=== PATIENT | female | born 1945 | race Caucasian/White ===

== ENCOUNTER → 2016-10-29 | Outpatient (CLI) | payer MEDICARE, MEDICAID ==
[~2016-10-29] MED LIST: ADVAIR 250/501 EA INH; ALPH-E-MIXED-4400 IU PO; AMOXICILLIN500 M3 PO; ASPI-COR81 M1 PO; ATIVAN0.5 MG PO; AVPAK AZITHROM250 M1 PO; BAYER ASPIRIN325 MG PO; BLOOD PRESSURE; CARDIZEM CD360 MG PO; CELEXA20 MG PO; CIPRO500 MG PO; CIPROFLOXACIN500 MG PO; CLARITIN10 M1 PO; DOXYCYCLINE100 M4 PO; FOSAMAX70 MG; HYDROCHLOROTHIA25 MG PO; IMDUR SA30 MG PO; KEFLEX 500 MG E2 CAP PO; KEFLEX500 MG PO; LEVAQUIN750 M1 PO; LISINOPRIL10 MG PO; LISINOPRIL20 MG PO; LOSARTAN POTAS100 M1 PO; MEDROL DOSEPAK4 MG PO; NORCO 325 MG-51 TAB PO; OSCAL,OYSTER S500 MG PO; PERI-COLACE 301 SGL PO; PRAVACHOL20 MG PO; PREDNISONE10 MG PO; PREDNISONE20 M1 PO; PREDNISONE20 MG PO; SIMVASTATIN20 MG PO; SYNTHROID,LEVO75 MCG PO; TOPICORT0.25% T; ULTRAM50 MG PO; VICODIN 5/500 505 MG PO; VICODIN 500 MG-1 TAB PO; VITAMIN D32000 IU PO; ZESTRIL,PRINIVI20 MG PO; ZESTRIL10 MG PO; Zofran4 MG PO
[2016-10-29 11:03] LABS: BASO # 0.1 10*3/uL (0.0-0.1); BASO % 1.1 % (0.0-1.0); EOS # 0.1 10*3/uL (0.0-0.4); EOS % 1.6 % (1.0-4.0); HEMATOCRIT 40.2 % (37.0-47.0); HEMOGLOBIN 12.8 g/dl (12.0-16.0); LYMPH % 31.3 % (27.0-41.0); MEAN CELL VOLUME 90.5 fl (81.0-99.0); MEAN CORPUSCULAR HGB 28.8 pg (27.0-31.0); MEAN CORPUSCULAR HGB CONC 31.8 g/dl (33.0-37.0); MEAN PLATELET VOLUME 10.4 fl (9.6-12.3); MONO # 0.6 10*3/uL (0.1-1.0); MONO % 8.6 % (3.0-9.0); NEUT # 3.6 10*3/uL (2.3-7.9); NEUT % 57.2 % (47.0-73.0); PLATELET COUNT AUTOMATED 253 10*3/uL (130-400); RED BLOOD COUNT 4.44 10*6/uL (4.10-5.10); RED CELL DISTRI WIDTH 13.8 % (0-14.5); WHITE BLOOD COUNT 6.4 10*3/uL (4.8-10.8)
[2016-10-29 11:39] LABS: ALBUMIN 3.5 gm/dl (3.1-4.5); ALKALINE PHOSPHATASE 72 U/L (45-117); BILIRUBIN, TOTAL 0.9 mg/dl (0.2-1.0); BUN 10 mg/dl (7-24); CARBON DIOXIDE 25 mmol/L (21-32); CHLORIDE 108 mmol/L (98-107); CHOLESTEROL 163 mg/dL (<200); EST GLOM FILT AFRICAN AMERICAN > 60 ml/min; FREE T4 1.35 ng/dl (0.76-1.46); GLUCOSE 77 mg/dL (65-99); HDL CHOLESTEROL 83 mg/dl (40-60); LDL CHOLESTEROL 64 mg/dL (9-159); POTASSIUM 4.4 mmol/L (3.5-5.1); SGOT/AST 24 IU/L (3-35); SGPT/ALT 19 U/L (12-78); SODIUM 143 mmol/L (136-145); TOTAL PROTEIN 7.5 gm/dL (6.4-8.2); TRIGLYCERIDES 82 mg/dl (<150); VLDL CHOLESTEROL 16 mg/dL (6-40)
== END | disposition home or self-care (01) ==
LOC: LAB 10:30
PROVIDERS: Family Medicine
DX: I10 Essential (primary) hypertension (principal); E78.5 Hyperlipidemia, unspecified; E55.9 Vitamin D deficiency, unspecified; E03.9 Hypothyroidism, unspecified

== ENCOUNTER → 2017-01-14 | Outpatient (CLI) | payer MEDICARE, MEDICAID | END | disposition home or self-care (01) | LOC: RAD 10:54 | DX: J20.9 Acute bronchitis, unspecified (principal); R07.89 Other chest pain; R05 Cough; R06.02 Shortness of breath; R09.89 Other specified symptoms and signs involving the circulatory and respiratory systems ==

== ENCOUNTER → 2017-01-24 | Outpatient (CLI) | payer MEDICARE, MEDICAID | END | disposition home or self-care (01) | LOC: RAD 16:20 | DX: J44.9 Chronic obstructive pulmonary disease, unspecified (principal); M17.0 Bilateral primary osteoarthritis of knee; I10 Essential (primary) hypertension; J20.9 Acute bronchitis, unspecified; M25.561 Pain in right knee; M25.562 Pain in left knee; R05 Cough; R09.89 Other specified symptoms and signs involving the circulatory and respiratory systems; R06.2 Wheezing ==

== ENCOUNTER 2017-03-04 12:36 | Emergency (ER) | payer MEDICARE, MEDICAID ==
[~2017-03-04] VITALS: Ht 152.4 cm; Wt 54.4 kg
[2017-03-04] MEDS ORDERED: CITALOPRAM20 MG PO (12:44)
[2017-03-04 12:53] VITALS: BP 146/68
[2017-03-04 13:39] LABS: BASO % 0.7 % (0.0-1.0); EOS % 0.7 % (1.0-4.0); HEMATOCRIT 34.9 % (37.0-47.0); HEMOGLOBIN 11.3 g/dl (12.0-16.0); LYMPH # 1.2 10*3/uL (1.3-4.4); MEAN CELL VOLUME 88.1 fl (81.0-99.0); MEAN CORPUSCULAR HGB 28.5 pg (27.0-31.0); MEAN CORPUSCULAR HGB CONC 32.4 g/dl (33.0-37.0); MEAN PLATELET VOLUME 10.3 fl (9.6-12.3); MONO # 0.6 10*3/uL (0.1-1.0); MONO % 9.9 % (3.0-9.0); NEUT % 67.5 % (47.0-73.0); PLATELET COUNT AUTOMATED 253 10*3/uL (130-400); RED BLOOD COUNT 3.96 10*6/uL (4.10-5.10); WHITE BLOOD COUNT 5.9 10*3/uL (4.8-10.8)
[2017-03-04 13:49] LABS: PROTHROMBIN TIME 10.4 SECONDS (9.0-12.4)
[2017-03-04 13:52] LABS: BILIRUBIN NEGATIVE (NEGATIVE); BLOOD NEGATIVE (NEGATIVE); COLOR YELLOW (YELLOW); GLUCOSE NEGATIVE (NEGATIVE); KETONE TRACE (NEGATIVE); LEUKO ESTERASE 1+ (NEGATIVE); NITRITE NEGATIVE (NEGATIVE); PH 7.5 (5.0-9.0); PROTEIN NEGATIVE (NEGATIVE); SPECIFIC GRAVITY <= 1.005 (1.005-1.030); UROBILINOGEN 0.2 E.U./dl (0.2-1.0)
[2017-03-04 13:54] LABS: ALBUMIN 3.2 gm/dl (3.1-4.5); ALKALINE PHOSPHATASE 89 U/L (45-117); BILIRUBIN, TOTAL 0.7 mg/dl (0.2-1.0); BUN 8 mg/dl (7-24); CARBON DIOXIDE 26 mmol/L (21-32); CHLORIDE 104 mmol/L (98-107); CKMB 0.5 ng/ml (0.5-3.6); CPK 85 U/L (26-192); EST GLOM FILT AFRICAN AMERICAN > 60 ml/min; FREE THYROXIN INDEX/T7 4.4 (1.5-5.4); GLUCOSE 129 mg/dL (65-99); POTASSIUM 4.2 mmol/L (3.5-5.1); SGOT/AST 23 IU/L (3-35); SGPT/ALT 13 U/L (12-78); SODIUM 143 mmol/L (136-145); T3 UPTAKE 36 % (31-39); THYROXINE (T4) TOTAL 12.4 ug/dl (4.8-13.9)
[2017-03-04 13:55] LABS: TROPONIN I < 0.015 ng/ml (<0.045)
[2017-03-04 14:03] LABS: CLARITY SL CLOUDY (CLEAR)
[2017-03-04 14:15] LABS: MUCOUS TRACE; URINE REFLEX COMMENT YES (NO)
== END 2017-03-04 15:17 | disposition short-term general hospital (02) ==
LOC: ED 12:36
PROVIDERS: Emergency Medicine
DX: R41.82 Altered mental status, unspecified (principal); F41.9 Anxiety disorder, unspecified; I25.10 Atherosclerotic heart disease of native coronary artery without angina pectoris; F32.9 Major depressive disorder, single episode, unspecified; E03.9 Hypothyroidism, unspecified; E78.5 Hyperlipidemia, unspecified; M19.90 Unspecified osteoarthritis, unspecified site; Z88.2 Allergy status to sulfonamides; Z79.82 Long term (current) use of aspirin; Z79.899 Other long term (current) drug therapy

== ENCOUNTER → 2017-03-15 | Outpatient (CLI) | payer MEDICARE, MEDICAID ==
[~2017-03-15] MED LIST changes: +CITALOPRAM20 MG PO
--- NOTE | ~2017-03-15 | HM ---
[place], [place] HOLTER MONITOR REPORT NAME: AZ TOMPKINS [facility] #: [id number] UNIT #: [id number] ROOM: DOCTOR: HEVER NICOLAS MD BIRTHDATE: [birth year] DOS: 03/15/2017 This was requested by Dr. Brice Vo. INDICATIONS: Stroke due to non-pyogenic cerebral venous thrombosis. PROCEDURE: A Holter recording was done on the patient's heart rhythm for 48 hours beginning at 9:43 a.m. on 03/15/2017 and removed on 03/17/2017. The recording was analyzed and this is being dictated on 03/17/2017. FINDINGS: The patient was in sinus rhythm during the study. No atrial fibrillation was recorded. Average heart rate was 59 with heart rates varying from 45-90 beats per minute. Very rare premature ventricular contractions were noted. These were all isolated and there was no ventricular tachycardia seen. Occasional premature atrial contractions were recorded including a 16-beat run of supraventricular tachycardia at a rate of 120 beats per minute. This appeared to be an atrial tachycardia. This was recorded at 329 on day 2 of the study. No prolonged pauses were recorded. The patient did return a diary, but made no entries. IMPRESSION: 1. Relative sinus bradycardia. The patient's average heart rate was 59. 2. Rare premature ventricular contractions without ventricular tachycardia. 3. Rare premature atrial contractions with a 16-beat run of atrial tachycardia recorded. Average rate 120 beats per minute during atrial tachycardia. 4. No symptoms listed. HEVER NICOLAS MD CM:HOLTER:HOLTER MONITOR REPORT 46 33 HEVER NICOLAS MD
== END | disposition home or self-care (01) ==
LOC: CARD 09:13
DX: I63.6 Cerebral infarction due to cerebral venous thrombosis, nonpyogenic (principal)

== ENCOUNTER → 2017-05-10 | Outpatient (CLI) | payer MEDICARE, MEDICAID ==
[2017-05-10 19:57] LABS: BF LYMPHOCYTES 17 %; BF MACROPHAGES 3 %; BF MONOCYTES 4 %; BF NEUTROPHILS 76 %
[2017-05-10 20:01] LABS: BODY FLUID WBC 8813 /uL
[2017-05-10 20:04] LABS: BODY FLUID RBC < 1000 /uL; BODY FLUID TYPE SYNOVIAL
== END | disposition home or self-care (01) ==
LOC: LAB 14:45
PROVIDERS: Orthopaedic Surgery
DX: M25.461 Effusion, right knee (principal)

== ENCOUNTER 2017-11-27 14:56 | Inpatient (IN) | payer MEDICARE, MEDICAID ==
[~2017-11-27] VITALS: Ht 152.4 cm; Wt 53.6 kg
--- NOTE | ~2017-11-27 | PR ---
[place], [place] PROGRESS NOTE NAME: AZ TOMPKINS [facility] #: [id number] UNIT #: [id number] ROOM: 521 DOCTOR: TAMMY GRIJALVA MD BIRTHDATE: [birth year] DOS: 11/29/2017 She was admitted to the hospital because of chest pain. The pain has been there for a few days and when she coughs, it seems to hurt more. She has some exertional shortness of breath. She has not had any dizziness, fainting spells or palpitation. OBJECTIVE: GENERAL: She looks well. VITAL SIGNS: Pulse is regular. NECK: JVP is normal. CARDIOVASCULAR: Auscultation reveals normal A2 intensity. However, there is a grade 2/6 systolic murmur over the aortic area. CHEST: Lungs are clear. EXTREMITIES: There is no edema in lower extremities. LABORATORY DATA: An echocardiogram was done yesterday. It demonstrated an LV ejection fraction of 70% and normal wall motion and mild aortic stenosis and trace aortic regurgitation and mild tricuspid regurgitation with mild pulmonary hypertension. She is to undergo a Lexiscan Cardiolite study this morning and I will take a look at the images later on. TAMMY GRIJALVA MD CM:PNTRANS 1133 [id number] TAMMY GRIJALVA MD 11/29/17 1146 interface
--- NOTE | ~2017-11-27 | CON ---
[place], [place] REPORT OF CONSULTATION NAME: AZ TOMPKINS [facility] #: [id number] UNIT #: [id number] ROOM: 521 DOCTOR: DIANDRA KNUTSON MD BIRTHDATE: [birth year] DOS: 11/28/2017 HISTORY OF PRESENT ILLNESS: A 72-year-old female, I am covering for Dr. Morales. We were consulted for shortness of breath. Dr. Vo was treating the patient for shortness of breath, possible pneumonia as an outpatient. The patient was getting Z-Marc. The patient states that she gets some chest discomfort when she exerts herself, but very little. She had a heart catheterization in [place] many years ago. She does not remember she refused any intervention. She does not think she had any stress test for a while. PAST MEDICAL HISTORY: History of TIA in the past, cardiac risk factors, hypertension, hyperlipidemia, osteoporosis, history of syncope. SURGICAL HISTORY: As mentioned, cholecystectomy, hysterectomy, cardiac catheterization probably did not really receive any intervention. SOCIAL HISTORY: Denies any alcohol or drug abuse. Hemodynamically appears to be stable. HOME MEDICATIONS: Aspirin, atorvastatin, isosorbide, lisinopril. REVIEW OF SYSTEMS: CONSTITUTIONAL: No fever, no chills. CARDIOVASCULAR: Had some atypical chest pain, but more pleuritic in nature, increases with coughing. RESPIRATORY: As per HPI with shortness of breath. GASTROINTESTINAL: No nausea, no vomiting. GENITOURINARY: No dysuria. NEUROLOGICAL: Stable. PHYSICAL EXAMINATION: GENERAL: The patient is alert, oriented x 3. She is in sinus rhythm. HEENT: Unremarkable. NECK: Supple, no JVD. LUNGS: Diminished breath sounds. Lungs exam showed no respiratory distress. HEART: Sounds are regular. ABDOMEN: Appears to be stable. RADIOLOGY: A chest x-ray showed no acute pulmonary process. EKG sinus with nonspecific ST-T changes. IMPRESSION: Probable pneumonitis, atypical chest discomfort, dyspnea on exertion, osteoarthritis, hypertension. RECOMMENDATIONS: Try to obtain the catheterization report from [place]. Continue the present medications as ordered. Continue the DuoNeb, Mucinex and antibiotics. We will consider to do an echocardiogram if it is not done in 6 months to assess the ejection fraction and we will follow up with you. Thank you for this interesting consultation. [place], [place] REPORT OF CONSULTATION NAME: AZ TOMPKINS UNIT #: [id number] ROOM: 521 DOCTOR: EAMON PACHECO,DIANDRA BIRTHDATE: [birth year] DIANDRA KNUTSON MD CM:CONSTR:REPORT OF CONSULTATION 0710 12/06/17 0951 interface
[2017-11-27] MEDS ORDERED: AMOXICILLIN500 M2 PO (15:18)
[2017-11-27] MEDS ORDERED: Nizoral 2%15 GM T (15:19)
[2017-11-27] MEDS ORDERED: TESSALON PERLE100 MG PO (15:19)
[2017-11-27] MEDS ORDERED: SENOKOT8.6 MG PO (15:20)
[2017-11-27] MEDS ORDERED: ATORVASTATIN CA40 M1 PO (15:21)
[2017-11-27 16:00] VITALS: BP 139/61
[2017-11-27 16:30] LABS: BASO # 0.1 10*3/uL (0.0-0.1); BASO % 1.5 % (0.0-1.0); EOS # 0.1 10*3/uL (0.0-0.4); EOS % 0.8 % (1.0-4.0); HEMATOCRIT 33.1 % (37.0-47.0); HEMOGLOBIN 10.7 g/dl (12.0-16.0); LYMPH # 2.1 10*3/uL (1.3-4.4); LYMPH % 34.3 % (27.0-41.0); MEAN CELL VOLUME 87.1 fl (81.0-99.0); MEAN CORPUSCULAR HGB 28.2 pg (27.0-31.0); MEAN CORPUSCULAR HGB CONC 32.3 g/dl (33.0-37.0); MEAN PLATELET VOLUME 10.2 fl (9.6-12.3); MONO # 0.6 10*3/uL (0.1-1.0); MONO % 9.2 % (3.0-9.0); NEUT # 3.2 10*3/uL (2.3-7.9); PLATELET COUNT AUTOMATED 302 10*3/uL (130-400); RED CELL DISTRI WIDTH 14.2 % (0-14.5)
[2017-11-27 16:39] LABS: ACT PARTIAL THROMBO TIME 25.5 SECONDS (20.8-31.5)
[2017-11-27 16:46] LABS: ALKALINE PHOSPHATASE 135 U/L (45-117); BUN 17 mg/dl (7-24); CHLORIDE 106 mmol/L (98-107); LIPASE 172 U/L (73-393); POTASSIUM 3.5 mmol/L (3.5-5.1); SGOT/AST 17 IU/L (3-35); SGPT/ALT 21 U/L (12-78); SODIUM 141 mmol/L (136-145); TOTAL PROTEIN 7.6 gm/dL (6.4-8.2)
[2017-11-27 16:47] LABS: TROPONIN I 0.021 ng/ml (<0.045)
[2017-11-27 16:53] LABS: BILIRUBIN NEGATIVE (NEGATIVE); BLOOD 1+ (NEGATIVE); CLARITY CLEAR (CLEAR); COLOR YELLOW (YELLOW); GLUCOSE NEGATIVE (NEGATIVE); KETONE NEGATIVE (NEGATIVE); LEUKO ESTERASE NEGATIVE (NEGATIVE); NITRITE NEGATIVE (NEGATIVE); SPECIFIC GRAVITY 1.015 (1.005-1.030); UROBILINOGEN 0.2 E.U./dl (0.2-1.0)
[2017-11-27 17:03] LABS: BACTERIA 1+; EPITHELIAL CELLS 0-2
[2017-11-27 20:12] VITALS: BP 101/45
[2017-11-28 00:36] VITALS: BP 118/50
[2017-11-28] MEDS ORDERED: GOOD NEIGHBOR L10 MG PO (02:44)
[2017-11-28 06:21] LABS: BASO % 0.3 % (0.0-1.0); HEMATOCRIT 33.1 % (37.0-47.0); HEMOGLOBIN 10.5 g/dl (12.0-16.0); LYMPH # 0.8 10*3/uL (1.3-4.4); MEAN CELL VOLUME 88.3 fl (81.0-99.0); MEAN CORPUSCULAR HGB CONC 31.7 g/dl (33.0-37.0); MEAN PLATELET VOLUME 10.4 fl (9.6-12.3); MONO # 0.1 10*3/uL (0.1-1.0); MONO % 1.7 % (3.0-9.0); NEUT # 2.6 10*3/uL (2.3-7.9); NEUT % 74.2 % (47.0-73.0); PLATELET COUNT AUTOMATED 254 10*3/uL (130-400); RED BLOOD COUNT 3.75 10*6/uL (4.10-5.10); RED CELL DISTRI WIDTH 13.9 % (0-14.5); WHITE BLOOD COUNT 3.6 10*3/uL (4.8-10.8)
[2017-11-28 06:44] LABS: ALBUMIN 2.7 gm/dl (3.1-4.5); ALKALINE PHOSPHATASE 125 U/L (45-117); BUN 13 mg/dl (7-24); CHLORIDE 110 mmol/L (98-107); CHOLESTEROL 136 mg/dL (<200); CREATININE 0.78 mg/dL (0.55-1.02); FREE T4 0.94 ng/dl (0.76-1.46); HDL CHOLESTEROL 74 mg/dl (40-60); LDL CHOLESTEROL 51 mg/dL (9-159); PHOSPHOROUS 3.2 mg/dL (2.5-4.9); POTASSIUM 4.1 mmol/L (3.5-5.1); SGOT/AST 18 IU/L (3-35); SGPT/ALT 18 U/L (12-78); SODIUM 143 mmol/L (136-145); TOTAL PROTEIN 7.2 gm/dL (6.4-8.2); TRIGLYCERIDES 57 mg/dl (<150); VLDL CHOLESTEROL 11 mg/dL (6-40)
[2017-11-28 06:51] LABS: ACT PARTIAL THROMBO TIME 25.9 SECONDS (20.8-31.5)
[2017-11-28 08:00] VITALS: BP 155/54
[2017-11-28 08:13] LABS: VITAMIN D, 25-HYDROXY 41.5 ng/mL (30-100)
[2017-11-28 12:00] VITALS: BP 151/50
[2017-11-28 16:00] VITALS: BP 116/55
[2017-11-28 20:00] VITALS: BP 119/55
[2017-11-29] VITALS: BP 117/53; BP 137/66
[2017-11-29 07:01] LABS: HEMATOCRIT 30.5 % (37.0-47.0); HEMOGLOBIN 9.6 g/dl (12.0-16.0); LYMPH # 0.8 10*3/uL (1.3-4.4); LYMPH % 9.2 % (27.0-41.0); MEAN CELL VOLUME 89.2 fl (81.0-99.0); MEAN CORPUSCULAR HGB 28.1 pg (27.0-31.0); MEAN CORPUSCULAR HGB CONC 31.5 g/dl (33.0-37.0); MEAN PLATELET VOLUME 10.5 fl (9.6-12.3); MONO # 0.5 10*3/uL (0.1-1.0); MONO % 5.3 % (3.0-9.0); NEUT # 7.6 10*3/uL (2.3-7.9); NEUT % 84.9 % (47.0-73.0); PLATELET COUNT AUTOMATED 253 10*3/uL (130-400); RED BLOOD COUNT 3.42 10*6/uL (4.10-5.10); RED CELL DISTRI WIDTH 14.1 % (0-14.5); WHITE BLOOD COUNT 8.9 10*3/uL (4.8-10.8)
[2017-11-29 07:13] LABS: BUN 19 mg/dl (7-24); CHLORIDE 112 mmol/L (98-107); SODIUM 143 mmol/L (136-145)
[2017-11-29 07:56] VITALS: BP 167/54
[2017-11-29 12:00] VITALS: BP 162/60
[2017-11-29 16:00] VITALS: BP 126/54
[2017-11-29 20:00] VITALS: BP 122/64; BP 124/67
[2017-11-30 00:15] VITALS: BP 124/52
[2017-11-30 08:06] VITALS: BP 176/65
[2017-11-30 16:00] VITALS: BP 130/55
[2017-11-30 20:00] VITALS: BP 125/86
[2017-12-01] VITALS: BP 122/54
[2017-12-01 08:00] VITALS: BP 178/80
[2017-12-01] MEDS ORDERED: PREDNISONE10 MG PO (11:41)
[2017-12-01 12:00] VITALS: BP 151/70
== END 2017-12-01 16:05 | disposition home or self-care (01) | DRG 190 ==
LOC: 5E 14:56
PROVIDERS: Hospitalist; Internal Medicine
PROC: 3E073KZ Introduction of Other Diagnostic Substance into Coronary Artery, Percutaneous Approach (ICD-10-PCS; principal; 2017-11-29)
PROC: 4A02XM4 Measurement of Cardiac Total Activity, External Approach (ICD-10-PCS; principal; 2017-11-29)
DX: J44.1 Chronic obstructive pulmonary disease with (acute) exacerbation (principal); J18.9 Pneumonia, unspecified organism; D64.9 Anemia, unspecified; F33.9 Major depressive disorder, recurrent, unspecified; I35.0 Nonrheumatic aortic (valve) stenosis; T14.8XXA Other injury of unspecified body region, initial encounter; D72.810 Lymphocytopenia; J44.0 Chronic obstructive pulmonary disease with (acute) lower respiratory infection; E03.9 Hypothyroidism, unspecified; E55.9 Vitamin D deficiency, unspecified; I25.119 Atherosclerotic heart disease of native coronary artery with unspecified angina pectoris; I10 Essential (primary) hypertension; M54.5 Low back pain; F41.9 Anxiety disorder, unspecified; M81.0 Age-related osteoporosis without current pathological fracture; G89.29 Other chronic pain; E78.5 Hyperlipidemia, unspecified; R73.03 Prediabetes; R74.8 Abnormal levels of other serum enzymes; R32 Unspecified urinary incontinence; X58.XXXA Exposure to other specified factors, initial encounter; M17.11 Unilateral primary osteoarthritis, right knee; R00.1 Bradycardia, unspecified; Z79.82 Long term (current) use of aspirin; Z90.49 Acquired absence of other specified parts of digestive tract; Z90.710 Acquired absence of both cervix and uterus; Z82.49 Family history of ischemic heart disease and other diseases of the circulatory system; Z83.6 Family history of other diseases of the respiratory system; Y93.89 Activity, other specified; Y92.89 Other specified places as the place of occurrence of the external cause; Z88.2 Allergy status to sulfonamides; Z86.73 Personal history of transient ischemic attack (TIA), and cerebral infarction without residual deficits; Z79.899 Other long term (current) drug therapy; Z83.3 Family history of diabetes mellitus

== ENCOUNTER → 2018-04-14 | Outpatient (CLI) | payer MEDICARE, MEDICAID ==
[~2018-04-14] MED LIST changes: +AMOXICILLIN500 M2 PO; +ATORVASTATIN CA40 M1 PO; +GOOD NEIGHBOR L10 MG PO; +Nizoral 2%15 GM T; +SENOKOT8.6 MG PO; +TESSALON PERLE100 MG PO
[2018-04-14 11:14] LABS: BASO # 0.1 10*3/uL (0.0-0.1); BASO % 1.1 % (0.0-1.0); EOS # 0.1 10*3/uL (0.0-0.4); EOS % 1.4 % (1.0-4.0); HEMOGLOBIN 10.5 g/dl (12.0-16.0); LYMPH # 1.9 10*3/uL (1.3-4.4); LYMPH % 26.6 % (27.0-41.0); MEAN CELL VOLUME 90.9 fl (81.0-99.0); MEAN CORPUSCULAR HGB 28.9 pg (27.0-31.0); MEAN CORPUSCULAR HGB CONC 31.8 g/dl (33.0-37.0); MEAN PLATELET VOLUME 10.1 fl (9.6-12.3); MONO # 0.7 10*3/uL (0.1-1.0); NEUT # 4.3 10*3/uL (2.3-7.9); NEUT % 60.6 % (47.0-73.0); PLATELET COUNT AUTOMATED 279 10*3/uL (130-400); RED BLOOD COUNT 3.63 10*6/uL (4.10-5.10); RED CELL DISTRI WIDTH 12.9 % (0-14.5)
[2018-04-14 11:52] LABS: ALBUMIN 2.9 gm/dl (3.1-4.5); ALKALINE PHOSPHATASE 114 U/L (45-117); BUN 9 mg/dl (7-24); CHLORIDE 104 mmol/L (98-107); CHOLESTEROL 112 mg/dL (<200); CREATININE 0.84 mg/dL (0.55-1.02); FREE T4 1.29 ng/dl (0.76-1.46); HDL CHOLESTEROL 60 mg/dl (40-60); LDL CHOLESTEROL 34 mg/dL (9-159); POTASSIUM 4.2 mmol/L (3.5-5.1); SGOT/AST 17 IU/L (3-35); SGPT/ALT 15 U/L (12-78); SODIUM 138 mmol/L (136-145); TOTAL PROTEIN 7.6 gm/dL (6.4-8.2); TRIGLYCERIDES 92 mg/dl (<150); VLDL CHOLESTEROL 18 mg/dL (6-40)
== END | disposition home or self-care (01) ==
LOC: LAB 10:36
PROVIDERS: Family Medicine
DX: J44.9 Chronic obstructive pulmonary disease, unspecified (principal); E78.5 Hyperlipidemia, unspecified; M81.0 Age-related osteoporosis without current pathological fracture; I10 Essential (primary) hypertension; I25.2 Old myocardial infarction

== ENCOUNTER → 2018-04-17 | Outpatient (CLI) | payer MEDICARE, MEDICAID | END | disposition home or self-care (01) | LOC: RAD 11:17 | DX: M81.0 Age-related osteoporosis without current pathological fracture (principal); E78.5 Hyperlipidemia, unspecified; Z78.0 Asymptomatic menopausal state; Z90.710 Acquired absence of both cervix and uterus ==

== ENCOUNTER → 2018-10-23 | Outpatient (CLI) | payer MEDICARE, MEDICAID ==
[~2018-10-23] MED LIST changes: +CETIRIZINE HYDR10 MG PO; +DOXYCYCLINE100 MG PO
== END | disposition home or self-care (01) ==
LOC: RAD 11:23
DX: J44.9 Chronic obstructive pulmonary disease, unspecified (principal)

== ENCOUNTER 2018-11-02 16:37 | Inpatient (IN) | payer MEDICARE, MEDICAID ==
[~2018-11-02] VITALS: Ht 152.4 cm; Wt 57.3 kg
[2018-11-02] VITALS: BP 102/45
--- NOTE | ~2018-11-02 | EKG ---
[place], [place] ELECTROCARDIOGRAM REPORT NAME: AZ TOMPKINS UNIT #: [id number] ROOM: 403 DOCTOR: CARO DRAFT REPORT BIRTHDATE: [address] [facility] Test Date: 2018-11-02 Test Time: 17:00:38 Pat Name: AZ TOMPKINS Department: Room: 403 Gender: F Channel Opener: Jan Phelan : 1945 Requested By: RE BUNDY Order Number: [id number] Reading MD: Darnell Barber MD Measurements Intervals [place] Rate: 62 P: 18 IN: 138 QRS: 6 QRSD: 84 T: 44 QT: 395 QTc: 402 Interpretive Statements Sinus rhythm Nonspecific ST-T changes Electronically Signed On 11-05-2018 21:01:08 PST by Darnell Barber MD CM:EKGRPT:ELECTROCARDIOGRAM REPORT 1700 00 RE BUNDY EPIPHANY DRAFT REPORT RE BUNDY
[~2018-11-02 16:37] MED LIST changes: -CETIRIZINE HYDR10 MG PO; -DOXYCYCLINE100 MG PO
[2018-11-02 16:40] VITALS: BP 121/47
[2018-11-02 17:21] LABS: BASO # 0.1 10*3/uL (0.0-0.1); BASO % 0.9 % (0.0-1.0); EOS % 0.6 % (1.0-4.0); HEMATOCRIT 38.3 % (37.0-47.0); HEMOGLOBIN 12.4 g/dl (12.0-16.0); LYMPH # 1.6 10*3/uL (1.3-4.4); LYMPH % 23.3 % (27.0-41.0); MEAN CELL VOLUME 90.3 fl (81.0-99.0); MEAN CORPUSCULAR HGB 29.2 pg (27.0-31.0); MEAN CORPUSCULAR HGB CONC 32.4 g/dl (33.0-37.0); MEAN PLATELET VOLUME 10.1 fl (9.6-12.3); MONO # 0.9 10*3/uL (0.1-1.0); MONO % 13.9 % (3.0-9.0); NEUT # 4.1 10*3/uL (2.3-7.9); PLATELET COUNT AUTOMATED 260 10*3/uL (130-400); RED BLOOD COUNT 4.24 10*6/uL (4.10-5.10); WHITE BLOOD COUNT 6.6 10*3/uL (4.8-10.8)
[2018-11-02 17:30] VITALS: BP 109/54
[2018-11-02 17:30] LABS: ACT PARTIAL THROMBO TIME 21.4 SECONDS (20.8-31.5); INTERNATIONAL NORM RATIO 0.9 (2.0-3.5)
[2018-11-02 17:39] LABS: ALBUMIN 3.4 gm/dl (3.1-4.5); ALKALINE PHOSPHATASE 109 U/L (45-117); BUN 13 mg/dl (7-24); CHLORIDE 105 mmol/L (98-107); CREATININE 1.11 mg/dL (0.55-1.02); POTASSIUM 3.9 mmol/L (3.5-5.1); SGOT/AST 25 IU/L (3-35); SGPT/ALT 21 U/L (12-78); SODIUM 140 mmol/L (136-145); TOTAL PROTEIN 7.7 gm/dL (6.4-8.2)
[2018-11-02 17:43] LABS: TROPONIN I < 0.015 ng/ml (<0.045)
--- NOTE | 2018-11-02 18:40 | NUR ---
PT RESTING QUIETLY, VOICES NO COMPLAINTS. WAITING FOR ROOM PLACEMENT.
[2018-11-02 18:41] VITALS: BP 107/46
[2018-11-02 19:45] VITALS: BP 101/58
--- NOTE | 2018-11-02 19:45 | NUR ---
A 73, admitted to , under the services of JIM Chavez MD with a diagnosis of ACUTE KDINEY INJURY, SYNCOPE AND COLLAPSE. Chief complaint is MULTIPLE COMPLAINTS. Patient arrived via stretcher from ER. Monitor applied. Initial assessment completed. Vital signs taken and recorded. JIM CHAEVZ MD notified of admission to the unit. Orders received. See assessment for past medical history, medications and allergies. Patient and/or family oriented to unit. [facility] 4TH FLOOR visitation policy reviewed. Clothing/patient valuable form completed. DANNY DUNN
--- NOTE | 2018-11-02 20:25 | NUR ---
DR. SHELBY ON FLOOR. NOTIFIED DR. SHELBY MED REC UP TO DATE. DR SHELBY. AWARE PATIENT HAS WOUND ON LONG. WAITING ON WOUND CARE ORDERS. DR. SHELBY ALSO MADE AWARE PATIENT DOES NOT WANT INTUBATION OR CHEST COMPRESSIONS. WANTING TO BE A DNRCCA. DR. SHELBY TO SIGN PAPER.
--- NOTE | 2018-11-02 21:18 | NUR ---
PATIENT BEING TAKEN DOWN FOR CT AT THIS TIME.
--- NOTE | 2018-11-02 21:31 | NUR ---
RECEIVED CRITICAL LAB VALUE OF 577. PER DR. SHELBY GIVE PATIENT 14UNITS AND RECHECK IN ONE HOUR
[2018-11-03] VITALS: BP 102/45
[2018-11-03 06:57] LABS: BASO % 0.3 % (0.0-1.0); HEMATOCRIT 35.2 % (37.0-47.0); LYMPH # 0.9 10*3/uL (1.3-4.4); LYMPH % 24.3 % (27.0-41.0); MEAN CORPUSCULAR HGB 29.3 pg (27.0-31.0); MEAN CORPUSCULAR HGB CONC 31.3 g/dl (33.0-37.0); MEAN PLATELET VOLUME 10.3 fl (9.6-12.3); MONO # 0.2 10*3/uL (0.1-1.0); MONO % 5.7 % (3.0-9.0); NEUT # 2.6 10*3/uL (2.3-7.9); NEUT % 69.2 % (47.0-73.0); PLATELET COUNT AUTOMATED 195 10*3/uL (130-400); RED BLOOD COUNT 3.76 10*6/uL (4.10-5.10); RED CELL DISTRI WIDTH 15.2 % (0-14.5); WHITE BLOOD COUNT 3.7 10*3/uL (4.8-10.8)
[2018-11-03 07:09] LABS: ALBUMIN 2.7 gm/dl (3.1-4.5); BUN 12 mg/dl (7-24); CHLORIDE 111 mmol/L (98-107); CHOLESTEROL 130 mg/dL (<200); CREATININE 0.78 mg/dL (0.55-1.02); PHOSPHOROUS 3.5 mg/dL (2.5-4.9); POTASSIUM 4.6 mmol/L (3.5-5.1); SGOT/AST 17 IU/L (3-35); SGPT/ALT 17 U/L (12-78); SODIUM 143 mmol/L (136-145); TOTAL PROTEIN 6.8 gm/dL (6.4-8.2); TRIGLYCERIDES 42 mg/dl (<150); VLDL CHOLESTEROL 8 mg/dL (6-40)
[2018-11-03 07:15] LABS: ALKALINE PHOSPHATASE 89 U/L (45-117); HDL CHOLESTEROL 73 mg/dl (40-60); LDL CHOLESTEROL 49 mg/dL (9-159)
[2018-11-03 07:17] LABS: MEAN CELL VOLUME 93.6 fl (81.0-99.0)
[2018-11-03 08:00] VITALS: BP 110/58
[2018-11-03 08:06] LABS: VITAMIN D, 25-HYDROXY 40.8 ng/mL (30-100)
--- NOTE | 2018-11-03 09:05 | NUR ---
PT MEDICATED WITH PRN ZOFRAN AFTER NAUSEA AND EMESIS X1.
[2018-11-03 12:00] VITALS: BP 102/42
[2018-11-03 16:00] VITALS: BP 116/50
[2018-11-03 20:00] VITALS: BP 110/51
--- NOTE | 2018-11-03 20:00 | NUR ---
TOOK OVER CARE OF PT AT THIS TIME. PT SITTING UP IN BED, ALERT ORIENTED AND PLEASANT MOOD. ASSESSMENT COMPLETE WITH AUDIBLE WHEEZING NOTED. NO C/O SOB ON ROOM AIR. RESPIRATIONS UNLABORED. DRESSING TO RLE IN TACT, CLEAN AND DRY. IV FLUIDS INFUSING. NO COMPLAINTS VOICED AT THIS TIME. ALL SAFETY MEASURES IN PLACE. CALL LIGHT IN REACH.
[2018-11-04] VITALS: BP 108/45
[2018-11-04 08:00] VITALS: BP 138/64
[2018-11-04 12:00] VITALS: BP 117/92
[2018-11-04 16:00] VITALS: BP 114/32
[2018-11-04 20:00] VITALS: BP 145/64
--- NOTE | 2018-11-04 20:13 | NUR ---
1930 RESTING IN BED WITHOUT C/O'S. MOIST COUGH CONT. PULSE OX 100% ON RA. HEP LOCK INTACT. BECKMAN. NO DISTRESS NOTED.
--- NOTE | 2018-11-04 21:31 | NUR ---
DRSG CHANGED TO LEFT INNER CALF PER PT REQUEST. SMALL AMOUNT OLD DRIED BLOOD NOTED ON OLD DRSG. TOLERATED WELL.
--- NOTE | 2018-11-04 22:04 | NUR ---
RESTING IN BED WATCHING TV. REMAINS WITHOUT C/O'S. CONDITION GUARDED.
[2018-11-05] VITALS: BP 101/59; BP 121/52
[2018-11-05 06:38] LABS: ALBUMIN 2.6 gm/dl (3.1-4.5); BUN 16 mg/dl (7-24); CHLORIDE 110 mmol/L (98-107); CREATININE 0.87 mg/dL (0.55-1.02); POTASSIUM 4.1 mmol/L (3.5-5.1); SGOT/AST 18 IU/L (3-35); SGPT/ALT 21 U/L (12-78); SODIUM 143 mmol/L (136-145)
[2018-11-05 06:40] LABS: ALKALINE PHOSPHATASE 89 U/L (45-117); TOTAL PROTEIN 6.5 gm/dL (6.4-8.2)
[2018-11-05 08:00] VITALS: BP 132/60
--- NOTE | 2018-11-05 09:00 | NUR ---
School Janitor in to talk to patient. Patient states lives at home alone with family checking in on her. She babysits her grandchildren. There are 0 steps in the home. Physician: Dr. Vo Pharmacy: [facility] services: has had [facility] in the past but not currently Patient's level of ADLs: MINIMAL ASSIST Patient has working utilities: yes DME: walker, hospital bed Follow-up physician's appointment after d/c: she prefers to make her own follow up appt after discharge Does patient want to access PORTAL?: no Discharge plan discussed with patient. She lives at home with her family living behind her. She babysits her grandchildren during the day. She is independent in her ADLs and ambulates with a walker. Discussed home health care services and she denies any home needs a this time. When medically stable she will be discharged to home. TIFF JASSO
--- NOTE | 2018-11-05 09:23 | NUR ---
PHYSICAL THERAPY Nursing screlukas received. PT orders also received. Thank you. Mary Ann Ruano,PT
[2018-11-05 12:00] VITALS: BP 132/60
--- NOTE | 2018-11-05 12:41 | NUR ---
AZ TOMPKINS [id number] Please refer to the physician's history and physical for past medical history, comorbid conditions, and allergies. Diagnosis: SYNACUTE KIDNEY INJURY, SYNCOPE AND COLLAPSE Jai Score: 21,LOW OR NO RISK WOUND DESCRIPTIONS: Location of the wound: RIGHT ANTERIOR LOWER LEG Type of wound: SKIN TEAR Thickness: Partial Size: 9.0cm X 2.0cm X 0.1cm Tunneling: NONE Undermining: NONE Sinus Tract: NONE Presence of Exudate: Sanguineous Amount: Light Color: Red Odor: None Periwound Skin Appearance: Erythema Wound edges: APPROXIMATED Pain (associated with wound): TENDER TO TOUCH How does patient state this happened? PATIENT STATES SHE FELL ON ICE AT HOME AND HIT THE OUTSIDE TRASH CAN. If wound is on legs/feet or hands, capillary refill time, pulses, color temp, sensation: CAP REFILL < 3 SECONDS. PATIENT WAS ENCOURAGED TO FOLLOW UP IN THE WOUND CARE CENTER OR PCP UPON DISCHARGE. PATIENT ASKED FOR THE WOUND CARE CENTER INFORMATION TO BE INCLUDED ON DISCHARGE PACKET. PATIENT STATES SHE WOULD MAKE APPOINTMENT ON HER OWN. Surface the patient is resting on: Isoflex SKIN PREVENTION RECOMMENDATION: 1. Pressure redistribution support surface as appropriate 2. Elevate heels 3. Remove boots/TEDS every shift and reapply 4. Head of bed 30 degrees as tolerated 5. Assess nutrition and hydration 6. Manage moisture 7. Avoid the use of containment devices while in bed 8. Use absorptive products on surfaces limit layers of linens on bed 9. Turn and reposition every 1-2 hours in bed and every 1 hour in chair as tolerated 10. Weight shifts every 15 minutes while up in chair 11. Offloading with pillows or device to keep heels elevated off bed 12. Monitor skin at least every shift 13. Inspect under medical devices twice a day WOUND TREATMENT RECOMMENDATIONS: CONTINUE CURRENT ORDERS.
--- NOTE | 2018-11-05 14:08 | NUR ---
Nursing screen received and chart review completed. Patient lives home alone with family nearby. SHe is independent in all ADL/IADLs at home. She was hospitalized with syncope, pneumonitis. Consider Occupational Therapy referral if patient should have a decline in safety or ADLs. Thank you. Hortensia Arnold OTR/L
[2018-11-05 16:00] VITALS: BP 138/66
--- NOTE | 2018-11-05 16:20 | NUR ---
Pt c/o pain to left groin states it came on suddenly about an hour ago and did not leave. Pt states she is concerned she may have done something when she fell at home. Medicated with tylenol per prn order and pt request for it.
--- NOTE | 2018-11-05 16:45 | NUR ---
Spoke with Dr. Barton regarding pt earlier complaints of pain to left groin, notifed that pt is concerned that she may have injured something when she fell at home. Xrays ordered.
[2018-11-05 20:00] VITALS: BP 132/64
--- NOTE | 2018-11-05 21:43 | NUR ---
PATIENT IN BED RESTING. NIGHT TIME MEDICATIONS GIVEN. NO COMPLAINTS AT THIS TIME. CALL LIGHT WITHIN REACH. WILL CONTINUE TO MONITOR.
[2018-11-06] VITALS: BP 116/46
--- NOTE | 2018-11-06 00:49 | NUR ---
24 HR chart check completed.
[2018-11-06 08:01] VITALS: BP 120/68
--- NOTE | 2018-11-06 09:00 | NUR ---
Production Corrugator in to see patient. No new needs or request at this time. She denies any home needs. When medically stable she will be discharged to home.
[2018-11-06 12:00] VITALS: BP 148/59
[2018-11-06] MEDS ORDERED: MEDROL DOSEPAK4 MG PO (12:52)
[2018-11-06] MEDS ORDERED: DOXYCYCLINE100 MG PO (12:52)
--- NOTE | 2018-11-06 13:30 | NUR ---
Discharge instructions reviewed with patient/family. Patient receptive and verbalizes understanding. Follow-up care arranged. Written instructions given to patient/family. Patient was educated on how to care for wound on her left dodd, new medications, and follow up visits with Dr. Waldron. GIL MUNOZ
--- NOTE | 2018-11-07 07:43 | NUR ---
PHYSICAL THERAPY Nursing screen received. Patient discharged at is time. Thank you. Mary Ann Ruano,PT
[2018-12-26] MEDS ORDERED: CETIRIZINE HYDR10 MG PO (14:21)
[2018-12-28] MEDS ORDERED: Nystatin Cream15 GM T (11:12)
[2018-12-28] MEDS ORDERED: FLUCONAZOLE100 MG PO (11:12)
[2018-12-28] MEDS ORDERED: HYDROXYZINE PAM25 M1 PO (11:12)
[2019-05-16] MEDS ORDERED: ADVAIR 250/501 EA INH (15:46)
[2019-05-18] MEDS ORDERED: CIPRO500 MG PO (17:37)
== END 2018-11-06 13:30 | disposition home or self-care (01) | DRG 682 ==
LOC: ED 16:37 → 4E 18:15 → EDHOLD 18:15 → 4E 19:52
PROVIDERS: Internal Medicine Nephrology; Nurse Practitioner Family; Student in an Organized Health Care Education/Training Program; ADMIT Internal Medicine
DX: N17.0 Acute kidney failure with tubular necrosis (principal); J18.9 Pneumonia, unspecified organism; J44.1 Chronic obstructive pulmonary disease with (acute) exacerbation; E87.2 Acidosis; J44.0 Chronic obstructive pulmonary disease with (acute) lower respiratory infection; R55 Syncope and collapse; F32.9 Major depressive disorder, single episode, unspecified; I35.0 Nonrheumatic aortic (valve) stenosis; M17.11 Unilateral primary osteoarthritis, right knee; I10 Essential (primary) hypertension; E03.9 Hypothyroidism, unspecified; E78.5 Hyperlipidemia, unspecified; Z66 Do not resuscitate; Z51.5 Encounter for palliative care; M81.0 Age-related osteoporosis without current pathological fracture; M25.552 Pain in left hip; E55.9 Vitamin D deficiency, unspecified; I25.10 Atherosclerotic heart disease of native coronary artery without angina pectoris; W18.30XA Fall on same level, unspecified, initial encounter; R73.03 Prediabetes; Y93.89 Activity, other specified; Y92.89 Other specified places as the place of occurrence of the external cause; Z88.2 Allergy status to sulfonamides; Z90.49 Acquired absence of other specified parts of digestive tract; Z90.710 Acquired absence of both cervix and uterus; Z83.3 Family history of diabetes mellitus; Z82.49 Family history of ischemic heart disease and other diseases of the circulatory system; Z82.5 Family history of asthma and other chronic lower respiratory diseases; Z82.61 Family history of arthritis; Z82.3 Family history of stroke; Z79.82 Long term (current) use of aspirin; Z79.899 Other long term (current) drug therapy; Y99.8 Other external cause status

== ENCOUNTER → 2019-03-03 | Outpatient (CLI) | payer MEDICARE, MEDICAID ==
[~2019-03-03] MED LIST changes: +CETIRIZINE HYDR10 MG PO; +DOXYCYCLINE100 MG PO; +FLUCONAZOLE100 MG PO; +HYDROXYZINE PAM25 M1 PO; +Nystatin Cream15 GM T
== END | disposition home or self-care (01) ==
LOC: RAD 12:57
DX: M17.11 Unilateral primary osteoarthritis, right knee (principal); M47.817 Spondylosis without myelopathy or radiculopathy, lumbosacral region; M25.461 Effusion, right knee

== ENCOUNTER 2019-07-05 10:59 | Inpatient (IN) | payer MEDICARE, MEDICAID ==
[~2019-07-05] VITALS: Ht 152.4 cm; Wt 59.0 kg
--- NOTE | ~2019-07-05 | CON ---
[place], [place] REPORT OF CONSULTATION NAME: AZ TOMPKINS [facility] #: [id number] UNIT #: [id number] ROOM: 522 DOCTOR: TAMMY GRIJALVA MD BIRTHDATE: [birth year] DOS: 07/08/2019 HISTORY OF PRESENT ILLNESS: This is a 74-year-old -[place] woman with a history of coronary artery disease, who had a heart catheterization done 5 years earlier and was found to have collateralization of one of the vessels, according to the patient. She had a stress test done last year as well as an echocardiogram, both of them were unremarkable. She has osteoarthritis, essential hypertension, hypothyroidism, hyperlipidemia, prediabetes, has had cholecystectomy and hysterectomy. She never uses tobacco, does not use alcoholic beverages. She was admitted to the hospital because of severe right knee pain, which has been evaluated and treated over the last few days. She has septic arthritis of the right knee. A MAYNOR was requested for possible endocarditis. She has not had any chest pain, breathing difficulty, palpitations, loss of consciousness or swelling in the legs. She has not had any nausea, abdominal pain or blood in the stools and has no liver disease and no dysphagia. CURRENT MEDICATIONS: Include Zofran, morphine, acetaminophen, [place], vancomycin, Protonix, subcutaneous Lovenox 40 mg every 12 hours for DVT and Voltaren cream. She is on nystatin as well. Apparently, she is not on any cardiac medications and home medications had included Imdur 30 mg daily, lisinopril 10 mg daily, atorvastatin 80 mg daily. PHYSICAL EXAMINATION: GENERAL: The patient is sitting in a recliner. She is very pleasant, alert, oriented. Her complexion is little pale, but she is not diaphoretic. There is no thyromegaly or finger clubbing. VITAL SIGNS: Pulse is regular at 76, blood pressure 148/74. NECK: Normal JVP. AJR is negative. There is no carotid bruit, no cardiomegaly is present. CARDIAC: Auscultation revealed grade 1-2/6 pansystolic murmur over the apex. EXTREMITIES: She has palpable pedal pulses and no edema in the lower extremities. RESPIRATORY: Lungs are clear to percussion and auscultation. IMPRESSION: This patient has septic right knee joint that is being treated. Blood cultures have been sent, and a MAYNOR was requested to exclude endocarditis, and this, I discussed with the patient and her nurse and it has been scheduled for 07/10/2019, i.e., in 2 days. [place], [place] REPORT OF CONSULTATION NAME: AZ TOMPKINS UNIT #: [id number] ROOM: 522 DOCTOR: TAMMY GRIJALVA MD BIRTHDATE: [birth year] TAMMY GRIJALVA MD CM:CONSTR:REPORT OF CONSULTATION 1756 07/09/19 0623 interface
--- NOTE | ~2019-07-05 | CON ---
[place], [place] REPORT OF CONSULTATION [id number] UNIT #: [id number] ROOM: 522 DOCTOR: MARY LOU QIU,JANUARY BIRTHDATE: [birth year] DOS: 07/07/2019 HISTORY OF PRESENT ILLNESS: The patient is a pleasant 74-year-old female who was admitted from home with right knee pain on the . On the , she developed swelling, redness and pain in the right knee to the point where she could no longer walk on it. She does have osteoarthritis and normally takes injections for the knee per Dr. Martins. Her last injection was in May. She denies any fevers or chills at home and she has been afebrile since admission here. She did not have any blood cultures obtained in the ER, blood cultures were ordered today. She had her admitting urine culture grew Staphylococcus aureus, MSSA. She received 1 gram of IV vancomycin in ER Monday evening. Her knee was aspirated by Dr. Baker on the day of admission, WBCs 21,950, 2000 RBCs, 87% neutrophils. WBCs were 9.4 on admission. Imaging showed a clear chest x-ray on admission. X-ray of the right knee showed moderate joint effusion and suprapatellar soft tissue swelling, no fracture or malalignment. Left knee x-ray showed degenerative changes and small to moderate joint effusion. The culture from the knee aspirate is not growing anything. However, the Gram stain has gram-positive cocci in pairs and clusters that would be consistent with Staphylococcus aureus as well as many wbc's. ID is consulted for possible right septic knee. PAST MEDICAL HISTORY: As above as well as a prior infection in the left lower leg after a fall in October of this year, which subsequently healed, anxiety, aortic stenosis, coronary artery disease, COPD, depression, hyperlipidemia, hypertension, hypothyroidism, normocytic anemia, osteoarthritis, osteoporosis, urinary incontinence, vitamin D deficiency, cardiac catheterization, cholecystectomy, hysterectomy. SOCIAL HISTORY: Lives at home alone. Nondrinker, nonsmoker, no illicit drug use. FAMILY MEDICAL HISTORY: Mother had diabetes, at the age of 56 from heart problems. Father had a brain aneurysm, in his 60s, had emphysema. ALLERGIES: INCLUDE SULFA AND AMPICILLIN. LABORATORY DATA: WBCs 9.8, platelets 293, BUN 13, creatinine 0.76. C-reactive protein 5.95. CURRENT MEDICATIONS: Zithromax, Claritin-D, Lovenox, Protonix, nystatin topically, vancomycin which appears to be ordered 1 gram IV daily, a trough is scheduled for later this evening, Voltaren. REVIEW OF SYSTEMS: As above in history of present illness. Of note as well, the patient has candidiasis of her perineum extending all the way back to her buttocks and under her breasts which she had prior to admission. Again, no fevers or chills. No nausea or vomiting, no diarrhea. Does have a sore throat for the last 2 days. Little cough, no shortness of breath. No peripheral edema. Does have osteoarthritis bilateral knees. Has strabismus which she has [place], [place] REPORT OF CONSULTATION NAME: AZ TOMPKINS UNIT #: [id number] ROOM: 522 DOCTOR: MARY LOU QIU,JANUARY BIRTHDATE: [birth year] had since she was a child. Further review of systems is unremarkable times 10. PHYSICAL EXAMINATION: VITAL SIGNS: Temperature 97.9, pulse 73, respirations 20, BP 102/59. GENERAL: A 74-year-old female, in no acute distress, nontoxic in appearance. HEAD, EYES, EARS, NOSE AND THROAT: Normocephalic. Pupils are equal, round and reactive to light. She does have strabismus. Oropharynx clear. No thrush. No exudates. NECK: Supple. LUNGS: Clear to auscultation bilaterally. Respirations even and unlabored. HEART: Regular rhythm, grade 2/6 murmur noted. ABDOMEN: Soft, nontender, nondistended, positive bowel sounds. EXTREMITIES: Left lower extremity: No edema or deformity. Right lower extremity: No pedal or ankle edema. She does have a bulky postop dressing over the right knee. SKIN: Otherwise warm, dry. She has extensive candidiasis of her labia, perineum between her buttocks as well as under her breasts. ASSESSMENT AND PLAN: Right septic knee, status post I and D yesterday by Dr. Baker. Cultures are sterile thus far, but the gram stain consistent with Staph. Her urine was also positive for Staph. This was probably a spill over from the blood. However, blood cultures were not obtained on admission. I would suspect that she is carrier of Staph aureus and now with extensive inflammation from the candidiasis became briefly bacteremic and seated the arthritic knee. She is currently on IV vancomycin pending cultures. However, the urine culture grew MSSA, so she may be able to be switched over to Ancef. She does have an AMPICILLIN ALLERGY. We will follow up on the cultures and adjust antibiotics accordingly. Add fluconazole for the extensive candidiasis. Continue topical nystatin. Continue the IV vancomycin, follow up on the trough later today. JANUARY UYEN BARRETO Nolvia Hsu MD CM:CONSTR:REPORT OF CONSULTATION 1846 07/07/19 8509 interface
--- NOTE | ~2019-07-05 | EKG ---
[place], [place] ELECTROCARDIOGRAM REPORT NAME: AZ TOMPKINS UNIT #: [id number] ROOM: 522 DOCTOR: CARO DRAFT REPORT BIRTHDATE: [birth year] [facility] Test Date: 2019-07-05 Test Time: 13:35:27 Pat Name: AZ TOMPKINS Department: Room: 522 Gender: F Bed Rubber: Annie Cruz : 1945 Requested By: DANIEL HEAD Order Number: [id number] Reading MD: Kelly Davila MD Measurements Intervals [place] Rate: 55 P: 29 IA: 135 QRS: 7 QRSD: 90 T: 14 QT: 471 QTc: 451 Interpretive Statements Sinus rhythm Low voltage, precordial leads Compared to ECG 11/02/2018 17:00:38 Low QRS voltage now present ST (T wave) deviation no longer present Electronically Signed On 07-08-2019 13:27:11 PDT by Kelly Davila MD CM:EKGRPT:ELECTROCARDIOGRAM REPORT 1335 1327 DANIEL BREWER DRAFT REPORT DANIEL HEAD DO
--- NOTE | ~2019-07-05 | CON ---
[place], [place] REPORT OF CONSULTATION NAME: AZ TOMPKINS UNIT #: [id number] ROOM: 522 DOCTOR: NOLVIA HSU MD BIRTHDATE: [birth year] DOS: 07/07/2019 ADDENDUM This is an addendum to consult note done by the nurse practitioner, Luisa Don. I agree with the assessment and plan, reviewed the labs and imaging, made the necessary changes in the note. Also contains attestation to the addendum done to the same consult note. Nolvia Hsu MD CM:CONSTR:REPORT OF CONSULTATION 1602 08/08/19 0355 interface
--- NOTE | ~2019-07-05 | EKG ---
[place], [place] ELECTROCARDIOGRAM REPORT NAME: AZ TOMPKINS UNIT #: [id number] ROOM: 522 DOCTOR: CARO DRAFT REPORT BIRTHDATE: [birth year] [facility] Test Date: 2019-07-05 Test Time: 11:09:09 Pat Name: AZ TOMPKINS Department: Room: 522 Gender: F Ladies Locker Room Attendant: : 1945 Requested By: DANIEL HEAD Order Number: [id number] Reading MD: Kelly Davila MD Measurements Intervals [place] Rate: 64 P: 21 GA: 133 QRS: 13 QRSD: 82 T: 27 QT: 418 QTc: 432 Interpretive Statements Sinus rhythm Compared to ECG 11/02/2018 17:00:38 ST (T wave) deviation no longer present Electronically Signed On 07-08-2019 13:26:50 PDT by Kelly Davila MD CM:EKGRPT:ELECTROCARDIOGRAM REPORT 1109 1326 DANIEL BREWER DRAFT REPORT DANIEL HEAD DO
--- NOTE | ~2019-07-05 | PR ---
[place], [place] PROGRESS NOTE NAME: AZ TOMPKINS [facility] #: [id number] UNIT #: [id number] ROOM: 522 DOCTOR: TAMMY GRIJALVA MD BIRTHDATE: [birth year] DOS: 07/11/2019 SUBJECTIVE: She feels fine, does not have any chest pain or breathing difficulty. I performed a transesophageal echocardiogram on her today and it demonstrated normal LV systolic function with an LV ejection fraction of 65%, mild LVH and mild tricuspid regurgitation, trace mitral regurgitation, and mild aortic regurgitation and jusq-sb-yciratha aortic stenosis and no vegetations on the leaflets were identified. I. e, she does not have any echocardiographic evidence of endocarditis. TAMMY GRIJALVA MD CM:PNTRANS 3 55 TAMMY GRIJALVA MD 07/11/192054 interface
--- NOTE | ~2019-07-05 | EKG ---
[place], [place] ELECTROCARDIOGRAM REPORT NAME: AZ TOMPKINS UNIT #: [id number] ROOM: 522 DOCTOR: CARO DRAFT REPORT BIRTHDATE: [birth year] [facility] Test Date: 2019-07-05 Test Time: 17:28:04 Pat Name: AZ TOMPKINS Department: Room: 522 Gender: F Clinical Team Manager: Annie Cruz : 1945 Requested By: DANIEL HEAD Order Number: [id number] Reading MD: Kelly Davila MD Measurements Intervals [place] Rate: 50 P: 8 VT: 147 QRS: -7 QRSD: 82 T: 1 QT: 491 QTc: 448 Interpretive Statements Sinus rhythm Borderline T abnormalities, inferior leads Baseline wander in lead(s) V1 Compared to ECG 11/02/2018 17:00:38 T-wave abnormality now present ST (T wave) deviation no longer present Electronically Signed On 07-08-2019 13:29:19 PDT by Kelly Davila MD CM:EKGRPT:ELECTROCARDIOGRAM REPORT [id number] DANIEL BREWER DRAFT REPORT DANIEL HEAD DO
[2019-07-05 11:01] VITALS: BP 137/67
[2019-07-05 11:22] LABS: BASO # 0.1 10*3/uL (0.0-0.1); BASO % 0.7 % (0.0-1.0); EOS # 0.1 10*3/uL (0.0-0.4); EOS % 0.5 % (1.0-4.0); HEMATOCRIT 32.1 % (37.0-47.0); HEMOGLOBIN 10.3 g/dl (12.0-16.0); LYMPH # 1.9 10*3/uL (1.3-4.4); LYMPH % 20.6 % (27.0-41.0); MEAN CELL VOLUME 90.4 fl (81.0-99.0); MEAN CORPUSCULAR HGB CONC 32.1 g/dl (33.0-37.0); MEAN PLATELET VOLUME 9.6 fl (9.6-12.3); MONO # 0.9 10*3/uL (0.1-1.0); MONO % 9.6 % (3.0-9.0); NEUT # 6.4 10*3/uL (2.3-7.9); NEUT % 68.2 % (47.0-73.0); PLATELET COUNT AUTOMATED 315 10*3/uL (130-400); RED BLOOD COUNT 3.55 10*6/uL (4.10-5.10); RED CELL DISTRI WIDTH 14.1 % (0-14.5); WHITE BLOOD COUNT 9.4 10*3/uL (4.8-10.8)
[2019-07-05 11:34] LABS: ACT PARTIAL THROMBO TIME 27.1 SECONDS (20.0-32.1)
[2019-07-05 11:38] LABS: ALBUMIN 2.8 gm/dl (3.1-4.5); ALKALINE PHOSPHATASE 83 U/L (45-117); BUN 13 mg/dl (7-24); CHLORIDE 104 mmol/L (98-107); CREATININE 0.92 mg/dL (0.55-1.02); POTASSIUM 3.7 mmol/L (3.5-5.1); SGOT/AST 11 IU/L (3-35); SGPT/ALT 10 U/L (12-78); SODIUM 137 mmol/L (136-145); TOTAL PROTEIN 7.5 gm/dL (6.4-8.2)
[2019-07-05 11:46] LABS: TROPONIN I < 0.015 ng/ml (<0.045)
[2019-07-05 12:03] LABS: BILIRUBIN NEGATIVE (NEGATIVE); BLOOD 2+ (NEGATIVE); CLARITY CLEAR (CLEAR); COLOR YELLOW (YELLOW); GLUCOSE NEGATIVE (NEGATIVE); KETONE NEGATIVE (NEGATIVE); LEUKO ESTERASE 1+ (NEGATIVE); NITRITE NEGATIVE (NEGATIVE); SPECIFIC GRAVITY <= 1.005 (1.005-1.030); UROBILINOGEN 0.2 E.U./dl (0.2-1.0)
[2019-07-05 13:11] VITALS: BP 135/65
[2019-07-05] MEDS ORDERED: NATURE'S BLEND F1 MG PO (15:35)
[2019-07-05 16:00] VITALS: BP 126/77
[2019-07-05] MEDS ORDERED: CLARITIN10 MG PO (17:45)
[2019-07-05 18:57] LABS: BODY FLUID WBC 21950 /uL
[2019-07-05 18:59] LABS: BF LYMPHOCYTES 4 %; BF MONOCYTES 9 %; BF NEUTROPHILS 87 %
[2019-07-05 20:00] VITALS: BP 124/61
[2019-07-06] VITALS (10 sets, daily range): BP systolic 120–148; BP diastolic 58–78
[2019-07-06 06:20] LABS: BASO # 0.1 10*3/uL (0.0-0.1); BASO % 0.9 % (0.0-1.0); EOS # 0.2 10*3/uL (0.0-0.4); EOS % 2.5 % (1.0-4.0); HEMATOCRIT 33.4 % (37.0-47.0); HEMOGLOBIN 10.3 g/dl (12.0-16.0); LYMPH # 1.7 10*3/uL (1.3-4.4); LYMPH % 22.3 % (27.0-41.0); MEAN CELL VOLUME 92.5 fl (81.0-99.0); MEAN CORPUSCULAR HGB 28.5 pg (27.0-31.0); MEAN CORPUSCULAR HGB CONC 30.8 g/dl (33.0-37.0); MEAN PLATELET VOLUME 9.6 fl (9.6-12.3); MONO # 0.9 10*3/uL (0.1-1.0); MONO % 11.5 % (3.0-9.0); NEUT # 4.7 10*3/uL (2.3-7.9); NEUT % 62.3 % (47.0-73.0); PLATELET COUNT AUTOMATED 277 10*3/uL (130-400); RED BLOOD COUNT 3.61 10*6/uL (4.10-5.10); RED CELL DISTRI WIDTH 14.1 % (0-14.5); WHITE BLOOD COUNT 7.5 10*3/uL (4.8-10.8)
[2019-07-06 06:53] LABS: BUN 13 mg/dl (7-24); CHLORIDE 107 mmol/L (98-107); CREATININE 0.76 mg/dL (0.55-1.02); HDL CHOLESTEROL 58 mg/dl (40-60); PHOSPHOROUS 3.3 mg/dL (2.5-4.9); POTASSIUM 4.1 mmol/L (3.5-5.1); SODIUM 140 mmol/L (136-145); TRIGLYCERIDES 91 mg/dl (<150); VLDL CHOLESTEROL 18 mg/dL (6-40)
[2019-07-06 06:59] LABS: CHOLESTEROL 122 mg/dL (<200); LDL CHOLESTEROL 46 mg/dL (9-159)
[2019-07-07] VITALS: BP 108/46
[2019-07-07 06:32] LABS: BASO % 0.3 % (0.0-1.0); EOS % 0.1 % (1.0-4.0); HEMATOCRIT 30.3 % (37.0-47.0); HEMOGLOBIN 9.4 g/dl (12.0-16.0); LYMPH # 1.3 10*3/uL (1.3-4.4); LYMPH % 13.4 % (27.0-41.0); MEAN CELL VOLUME 90.4 fl (81.0-99.0); MEAN CORPUSCULAR HGB 28.1 pg (27.0-31.0); MEAN PLATELET VOLUME 9.9 fl (9.6-12.3); MONO # 0.9 10*3/uL (0.1-1.0); MONO % 9.4 % (3.0-9.0); NEUT # 7.5 10*3/uL (2.3-7.9); NEUT % 76.2 % (47.0-73.0); PLATELET COUNT AUTOMATED 293 10*3/uL (130-400); RED BLOOD COUNT 3.35 10*6/uL (4.10-5.10); RED CELL DISTRI WIDTH 13.6 % (0-14.5); WHITE BLOOD COUNT 9.8 10*3/uL (4.8-10.8)
[2019-07-07 08:00] VITALS: BP 128/68
[2019-07-07 12:00] VITALS: BP 124/72
[2019-07-07 12:01] LABS: ACID FAST SPEC PROCESSING Direct Inoculation (.)
[2019-07-07 16:00] VITALS: BP 102/59
[2019-07-07 20:00] VITALS: BP 122/62
[2019-07-08] VITALS: BP 120/54
[2019-07-08 06:49] LABS: BASO # 0.1 10*3/uL (0.0-0.1); BASO % 1.2 % (0.0-1.0); EOS # 0.2 10*3/uL (0.0-0.4); EOS % 2.5 % (1.0-4.0); HEMATOCRIT 31.1 % (37.0-47.0); HEMOGLOBIN 9.7 g/dl (12.0-16.0); LYMPH # 1.9 10*3/uL (1.3-4.4); LYMPH % 24.1 % (27.0-41.0); MEAN CELL VOLUME 91.2 fl (81.0-99.0); MEAN CORPUSCULAR HGB 28.4 pg (27.0-31.0); MEAN CORPUSCULAR HGB CONC 31.2 g/dl (33.0-37.0); MEAN PLATELET VOLUME 9.7 fl (9.6-12.3); MONO # 1.1 10*3/uL (0.1-1.0); MONO % 13.8 % (3.0-9.0); NEUT # 4.7 10*3/uL (2.3-7.9); PLATELET COUNT AUTOMATED 273 10*3/uL (130-400); RED BLOOD COUNT 3.41 10*6/uL (4.10-5.10); RED CELL DISTRI WIDTH 13.9 % (0-14.5); WHITE BLOOD COUNT 8.1 10*3/uL (4.8-10.8)
[2019-07-08 07:20] LABS: BUN 15 mg/dl (7-24); CHLORIDE 104 mmol/L (98-107); CREATININE 0.86 mg/dL (0.55-1.02); POTASSIUM 4.1 mmol/L (3.5-5.1); SODIUM 137 mmol/L (136-145)
[2019-07-08 08:00] VITALS: BP 135/67
[2019-07-08 12:00] VITALS: BP 123/64
[2019-07-08 16:00] VITALS: BP 148/74
[2019-07-08 20:00] VITALS: BP 114/55
[2019-07-09] VITALS: BP 112/54
[2019-07-09 07:27] LABS: HEMATOCRIT 30.8 % (37.0-47.0); HEMOGLOBIN 9.6 g/dl (12.0-16.0); MEAN CELL VOLUME 90.9 fl (81.0-99.0); MEAN CORPUSCULAR HGB 28.3 pg (27.0-31.0); MEAN CORPUSCULAR HGB CONC 31.2 g/dl (33.0-37.0); MEAN PLATELET VOLUME 10.1 fl (9.6-12.3); PLATELET COUNT AUTOMATED 285 10*3/uL (130-400); RED BLOOD COUNT 3.39 10*6/uL (4.10-5.10)
[2019-07-09 07:38] LABS: ALBUMIN 2.3 gm/dl (3.1-4.5); ALKALINE PHOSPHATASE 79 U/L (45-117); BUN 15 mg/dl (7-24); CHLORIDE 104 mmol/L (98-107); CREATININE 0.73 mg/dL (0.55-1.02); SGOT/AST 8 IU/L (3-35); SGPT/ALT 9 U/L (12-78); SODIUM 139 mmol/L (136-145); TOTAL PROTEIN 6.8 gm/dL (6.4-8.2)
[2019-07-09 08:00] VITALS: BP 128/52
[2019-07-09 08:20] LABS: BASOPHILS 1 % (0-1); PLATELET SUFFICIENCY NORMAL (NORMAL); POLYCHROMASIA SLIGHT; TOTAL CELLS COUNTED 100 #CELLS
[2019-07-09 12:00] VITALS: BP 130/52
[2019-07-09 16:00] VITALS: BP 143/56
[2019-07-09 20:00] VITALS: BP 129/60
[2019-07-10] VITALS: BP 122/60
[2019-07-10 06:50] LABS: HEMATOCRIT 31.2 % (37.0-47.0); HEMOGLOBIN 9.5 g/dl (12.0-16.0); MEAN CELL VOLUME 92.6 fl (81.0-99.0); MEAN CORPUSCULAR HGB 28.2 pg (27.0-31.0); MEAN CORPUSCULAR HGB CONC 30.4 g/dl (33.0-37.0); MEAN PLATELET VOLUME 9.9 fl (9.6-12.3); PLATELET COUNT AUTOMATED 310 10*3/uL (130-400); RED BLOOD COUNT 3.37 10*6/uL (4.10-5.10); WHITE BLOOD COUNT 7.1 10*3/uL (4.8-10.8)
[2019-07-10 07:30] LABS: CHLORIDE 103 mmol/L (98-107); POTASSIUM 4.2 mmol/L (3.5-5.1); SODIUM 136 mmol/L (136-145)
[2019-07-10 07:33] LABS: ATYPICAL LYMPHS 1 % (0-0); PLATELET SUFFICIENCY NORMAL (NORMAL); POLYCHROMASIA SLIGHT; TOTAL CELLS COUNTED 100 #CELLS
[2019-07-10 07:35] LABS: BUN 15 mg/dl (7-24); CREATININE 0.76 mg/dL (0.55-1.02)
[2019-07-10 08:00] VITALS: BP 118/50
[2019-07-10 12:00] VITALS: BP 103/60
[2019-07-10 16:00] VITALS: BP 105/61
[2019-07-10 20:00] VITALS: BP 113/55
[2019-07-11] VITALS (9 sets, daily range): BP systolic 100–152; BP diastolic 44–79
[2019-07-11] MEDS ORDERED: VANCO 1 GR1 GM/250 M IV (17:56)
[2019-07-12] VITALS: BP 127/66
[2019-07-12 08:27] LABS: BASO # 0.1 10*3/uL (0.0-0.1); BASO % 1.4 % (0.0-1.0); EOS # 0.3 10*3/uL (0.0-0.4); EOS % 4.4 % (1.0-4.0); HEMATOCRIT 30.9 % (37.0-47.0); HEMOGLOBIN 9.6 g/dl (12.0-16.0); LYMPH # 1.7 10*3/uL (1.3-4.4); LYMPH % 26.9 % (27.0-41.0); MEAN CELL VOLUME 91.4 fl (81.0-99.0); MEAN CORPUSCULAR HGB 28.4 pg (27.0-31.0); MEAN CORPUSCULAR HGB CONC 31.1 g/dl (33.0-37.0); MEAN PLATELET VOLUME 9.7 fl (9.6-12.3); MONO # 0.8 10*3/uL (0.1-1.0); MONO % 12.4 % (3.0-9.0); NEUT # 3.3 10*3/uL (2.3-7.9); NEUT % 51.9 % (47.0-73.0); PLATELET COUNT AUTOMATED 335 10*3/uL (130-400); RED BLOOD COUNT 3.38 10*6/uL (4.10-5.10); RED CELL DISTRI WIDTH 13.8 % (0-14.5); WHITE BLOOD COUNT 6.4 10*3/uL (4.8-10.8)
[2019-07-12 08:36] LABS: BUN 17 mg/dl (7-24); CHLORIDE 105 mmol/L (98-107); CREATININE 0.88 mg/dL (0.55-1.02); POTASSIUM 4.6 mmol/L (3.5-5.1); SODIUM 139 mmol/L (136-145)
[2019-07-12 12:00] VITALS: BP 152/66
[2019-07-12] MEDS ORDERED: FLUCONAZOLE100 MG PO (14:10)
[2019-07-12] MEDS ORDERED: VOLTAREN100 GM T (14:10)
[2019-08-21 11:09] LABS: ACID FAST CULTURE Negative (.)
== END 2019-07-12 14:46 | disposition home health service (06) | DRG 488 ==
LOC: ED 10:59 → EDHOLD 12:17 → 5E 12:17
PROVIDERS: Emergency Medicine; Internal Medicine; Internal Medicine Nephrology; Orthopaedic Surgery; Student in an Organized Health Care Education/Training Program; ADMIT Internal Medicine
PROC: 0SQC4ZZ Repair Right Knee Joint, Percutaneous Endoscopic Approach (ICD-10-PCS; principal; 2019-07-06)
PROC: 0SBC4ZZ Excision of Right Knee Joint, Percutaneous Endoscopic Approach (ICD-10-PCS; principal; 2019-07-06)
PROC: B24BZZ4 Ultrasonography of Heart with Aorta, Transesophageal (ICD-10-PCS; 2019-07-10)
PROC: 0S9C3ZX Drainage of Right Knee Joint, Percutaneous Approach, Diagnostic (ICD-10-PCS; 2019-07-10)
PROC: 02HV33Z Insertion of Infusion Device into Superior Vena Cava, Percutaneous Approach (ICD-10-PCS; 2019-07-12)
DX: M00.9 Pyogenic arthritis, unspecified (principal); E43 Unspecified severe protein-calorie malnutrition; N39.0 Urinary tract infection, site not specified; F33.0 Major depressive disorder, recurrent, mild; M25.461 Effusion, right knee; J20.9 Acute bronchitis, unspecified; I10 Essential (primary) hypertension; I25.10 Atherosclerotic heart disease of native coronary artery without angina pectoris; M19.90 Unspecified osteoarthritis, unspecified site; F41.9 Anxiety disorder, unspecified; E78.5 Hyperlipidemia, unspecified; E03.9 Hypothyroidism, unspecified; M81.0 Age-related osteoporosis without current pathological fracture; M17.11 Unilateral primary osteoarthritis, right knee; R07.9 Chest pain, unspecified; E55.9 Vitamin D deficiency, unspecified; R73.03 Prediabetes; R73.09 Other abnormal glucose; D64.9 Anemia, unspecified; J41.0 Simple chronic bronchitis; R82.71 Bacteriuria; I08.3 Combined rheumatic disorders of mitral, aortic and tricuspid valves; B96.89 Other specified bacterial agents as the cause of diseases classified elsewhere; B37.9 Candidiasis, unspecified; Z66 Do not resuscitate; Z51.5 Encounter for palliative care; Z90.49 Acquired absence of other specified parts of digestive tract; Z90.710 Acquired absence of both cervix and uterus; Z82.49 Family history of ischemic heart disease and other diseases of the circulatory system; Z83.3 Family history of diabetes mellitus; Z83.6 Family history of other diseases of the respiratory system; Z84.89 Family history of other specified conditions; Z88.2 Allergy status to sulfonamides; Z88.8 Allergy status to other drugs, medicaments and biological substances; Z79.82 Long term (current) use of aspirin; Z79.899 Other long term (current) drug therapy; Z88.0 Allergy status to penicillin; Z68.25 Body mass index [BMI] 25.0-25.9, adult

== ENCOUNTER → 2019-08-19 | Outpatient (CLI) | payer MEDICARE, MEDICAID ==
[~2019-08-19] MED LIST changes: +CLARITIN10 MG PO; +NATURE'S BLEND F1 MG PO; +VANCO 1 GR1 GM/250 M IV; +VOLTAREN100 GM T
== END | disposition home or self-care (01) ==
LOC: ORTHO 00:51
DX: M17.11 Unilateral primary osteoarthritis, right knee (principal); M25.461 Effusion, right knee

== ENCOUNTER → 2019-08-20 | Outpatient (CLI) | payer MEDICARE, MEDICAID | END | disposition home or self-care (01) | LOC: LAB 08:48 | DX: E78.2 Mixed hyperlipidemia (principal); M00.061 Staphylococcal arthritis, right knee ==

== ENCOUNTER → 2019-10-07 | Outpatient (CLI) | payer MEDICARE, MEDICAID ==
[2019-10-07 12:10] LABS: BODY FLUID WBC 4115 /uL
[2019-10-07 12:49] LABS: BF LYMPHOCYTES 45 %; BF MACROPHAGES 30 %; BF NEUTROPHILS 22 %
== END | disposition home or self-care (01) ==
LOC: ORTHO 01:13
PROVIDERS: Orthopaedic Surgery
DX: M17.11 Unilateral primary osteoarthritis, right knee (principal)

== ENCOUNTER → 2019-10-14 | Outpatient (CLI) | payer OTHER, MEDICAID ==
[2019-10-14 13:41] LABS: BODY FLUID WBC 17275 /uL
[2019-10-14 13:46] LABS: BF LYMPHOCYTES 10 %; BF MONOCYTES 10 %; BF NEUTROPHILS 80 %
== END | disposition home or self-care (01) ==
LOC: ORTHO 01:08
PROVIDERS: Orthopaedic Surgery
DX: M17.11 Unilateral primary osteoarthritis, right knee (principal)

== ENCOUNTER 2019-12-12 11:57 | Inpatient (IN) | payer OTHER, MEDICAID ==
[~2019-12-12] VITALS: Ht 152.4 cm; Wt 56.5 kg
[2019-12-12 12:56] LABS: CLARITY SL CLOUDY (CLEAR); COLOR YELLOW (YELLOW)
[2019-12-12 12:57] LABS: BILIRUBIN NEGATIVE (NEGATIVE); BLOOD 3+ (NEGATIVE); GLUCOSE NEGATIVE (NEGATIVE); KETONE NEGATIVE (NEGATIVE); LEUKO ESTERASE 2+ (NEGATIVE); NITRITE NEGATIVE (NEGATIVE); UROBILINOGEN 0.2 E.U./dl (0.2-1.0)
[2019-12-12 12:58] LABS: BACTERIA 2+; WBC TNTC wbc/hpf (0-5)
[2019-12-12 13:00] LABS: RBC 21-30 rbc/hpf (0-2)
[2019-12-12 13:11] LABS: BASO # 0.1 10*3/uL (0.0-0.1); BASO % 1.3 % (0.0-1.0); EOS % 0.3 % (1.0-4.0); HEMOGLOBIN 9.4 g/dl (12.0-16.0); LYMPH # 1.5 10*3/uL (1.3-4.4); LYMPH % 21.9 % (27.0-41.0); MEAN CELL VOLUME 88.2 fl (81.0-99.0); MEAN CORPUSCULAR HGB 27.6 pg (27.0-31.0); MEAN CORPUSCULAR HGB CONC 31.3 g/dl (33.0-37.0); MEAN PLATELET VOLUME 9.9 fl (9.6-12.3); MONO # 0.9 10*3/uL (0.1-1.0); MONO % 12.8 % (3.0-9.0); NEUT # 4.3 10*3/uL (2.3-7.9); NEUT % 63.3 % (47.0-73.0); PLATELET COUNT AUTOMATED 319 10*3/uL (130-400); RED CELL DISTRI WIDTH 15.7 % (0-14.5); WHITE BLOOD COUNT 6.8 10*3/uL (4.8-10.8)
[2019-12-12 13:20] LABS: ACT PARTIAL THROMBO TIME 27.6 SECONDS (20.0-32.1)
[2019-12-12 13:25] LABS: ALBUMIN 2.5 gm/dl (3.1-4.5); ALKALINE PHOSPHATASE 86 U/L (45-117); BUN 13 mg/dl (7-24); CHLORIDE 105 mmol/L (98-107); CREATININE 0.93 mg/dL (0.55-1.02); POTASSIUM 3.5 mmol/L (3.5-5.1); SGOT/AST 18 IU/L (3-35); SGPT/ALT 20 U/L (12-78); SODIUM 135 mmol/L (136-145); TOTAL PROTEIN 7.7 gm/dL (6.4-8.2)
[2019-12-12 13:28] LABS: TROPONIN I < 0.015 ng/ml (<0.045)
[2019-12-12 14:01] LABS: BODY FLUID WBC 44005 /uL
[2019-12-12 15:13] LABS: BF LYMPHOCYTES 1 %; BF MACROPHAGES 2 %; BF MONOCYTES 3 %; BF NEUTROPHILS 94 %
--- NOTE | 2019-12-12 15:40 | NUR ---
PT RESTING IN BED, PATIENT HAS BEEN ASSISTED TO THE BEDSIDE BY THIS NURSE. PT SATES SHE HAS PAIN IN HER KNEE WITH MOVEMENT. DENIES THE NEED OF ANYTHING AT THIS TIME. CALL LIGHT WITHIN REACH.
--- NOTE | 2019-12-12 16:37 | NUR ---
ASSISTED PATIENT TO BEDSIDE.
[2019-12-12 17:40] VITALS: BP 124/52
--- NOTE | 2019-12-12 17:49 | NUR ---
Time: 1739 A 74 year old FEMALE admitted to 5E under services of DR. MANE PACHECO,JIM. Pt. arrived via stretcher from ER. Chief complaint: RIGHT KNEE PAIN. LAUREN SAENZ
--- NOTE | 2019-12-12 18:22 | NUR ---
DR. LINDSEY NOTIFIED OF NEW CONSULT, NO NEW ORDERS FROM HIM AT THIS TIME. HE WILL SEE THE PATIENT TOMORROW.
[2019-12-12 20:00] VITALS: BP 121/49
[2019-12-13] VITALS: BP 110/50
--- NOTE | 2019-12-13 04:51 | NUR ---
24 HR chart check completed.
--- NOTE | 2019-12-13 05:46 | NUR ---
SARAHI TOMPKINSH Diego [id number] Please refer to the physician's history and physical for past medical history, comorbid conditions, and allergies. Diagnosis: EFFUSION RIFHT KNEE INABILITY TO AMBULATE UTI Jai Score: 21,LOW OR NO RISK WOUND DESCRIPTIONS: Patient has red patchy areas with white plaques noted to bilateral upper arms, right upper thigh and lower back at time of assessment patient stated that it was very itchy and had 14 days of topicort ointment. Patient has red satelitte areas noted to abdominal folds, bilateral breasts, entire periarea extending to intergluteal cleft at time of assessment Patient states she is using nystatin powder at home and she did have diflucan in the past for the areas. Surface the patient is resting on: Isoflex SKIN PREVENTION RECOMMENDATION: 1. Pressure redistribution support surface as appropriate 2. Elevate heels 3. Remove boots/TEDS every shift and reapply 4. Head of bed 30 degrees as tolerated 5. Assess nutrition and hydration 6. Manage moisture 7. Avoid the use of containment devices while in bed 8. Use absorptive products on surfaces limit layers of linens on bed 9. Turn and reposition every 1-2 hours in bed and every 1 hour in chair as tolerated 10. Weight shifts every 15 minutes while up in chair 11. Offloading with pillows or device to keep heels elevated off bed 12. Monitor skin at least every shift 13. Inspect under medical devices twice a day WOUND TREATMENT RECOMMENDATIONS: D/C nystatin cream Cleanse abdominal folds, bilateral breasts, entire periarea extending to intergluteal cleft with soap and water and apply nystatin powder every 8 hours and prn for soiling. Cleanse bilateral upper arms, right upper thigh and lower back with soap and water and apply topicort 0.25% BID for 2 weeks. May need something orally for areas to bilateral breasts, entire periarea extending to intergluteal cleft. Wheelchair cushion when oob.
[2019-12-13 06:23] LABS: BASO # 0.1 10*3/uL (0.0-0.1); BASO % 1.2 % (0.0-1.0); EOS # 0.1 10*3/uL (0.0-0.4); EOS % 1.2 % (1.0-4.0); HEMATOCRIT 30.6 % (37.0-47.0); HEMOGLOBIN 9.4 g/dl (12.0-16.0); LYMPH # 1.7 10*3/uL (1.3-4.4); MEAN CELL VOLUME 88.4 fl (81.0-99.0); MEAN CORPUSCULAR HGB 27.2 pg (27.0-31.0); MEAN CORPUSCULAR HGB CONC 30.7 g/dl (33.0-37.0); NEUT # 3.2 10*3/uL (2.3-7.9); NEUT % 52.9 % (47.0-73.0); PLATELET COUNT AUTOMATED 308 10*3/uL (130-400); RED BLOOD COUNT 3.46 10*6/uL (4.10-5.10); RED CELL DISTRI WIDTH 15.5 % (0-14.5)
[2019-12-13 06:53] LABS: ALBUMIN 2.2 gm/dl (3.1-4.5); ALKALINE PHOSPHATASE 75 U/L (45-117); BUN 11 mg/dl (7-24); CHLORIDE 107 mmol/L (98-107); POTASSIUM 3.9 mmol/L (3.5-5.1); SGOT/AST 14 IU/L (3-35); SGPT/ALT 13 U/L (12-78); SODIUM 138 mmol/L (136-145); TOTAL PROTEIN 7.2 gm/dL (6.4-8.2)
[2019-12-13 08:00] VITALS: BP 102/52
--- NOTE | 2019-12-13 10:15 | NUR ---
PATIENT COMPLAIN OF PAIN RIGHT KNEE 8/, NORCO GIVEN. WILL MONITOR FOR EFFECTIVENESS
--- NOTE | 2019-12-13 10:22 | NUR ---
PHYSICAL THERAPY Progress note: Pt was seen today for evaluation while on 5th floor. She reports pain at 8/10 right knee. Nurse was offering pain medication at conclusion. Pt was limited with all function and gait with use of SBQC and required MinAx1. Recommend SNF vs HHPT upon discharge. Refer to evaluation for full details. Thank you for this referral. Kelle Browne, PT
--- NOTE | 2019-12-13 11:00 | NUR ---
NORCO SLIGHTLY EFFECTIVE
--- NOTE | 2019-12-13 11:00 | NUR ---
Oil Inspector in to talk to patient. Patient states lives at home alone with her son and [id number]-lv-wsv living 300 yards away from her in a trailer. There are 0 steps in the home. Physician: Dr. Vo Pharmacy: [facility]: has had [facility] in the past and is unsure if she will need them on discharge Patient's level of ADLs: MINIMAL ASSIST Patient has working utilities: yes DME: cane, walker, hospital bed, BSC, shower chair Follow-up physician's appointment after d/c: she prefers to make her own follow up appt after discharge Does patient want to access PORTAL?: no Discharge plan discussed with patient. She lives at home alone with her son and ospyyzjd-ce-ogh living 300 yards away from her in a trailer. She is independent in her ADLs and uses either a walker or cane for ambulation. Discussed home health care services and she has had [facility] in the past but is unsure at this time if she will need them on discharge. When medically stable she will be discharged to home. Her son or granddaughter will provide transportation on discharge. TIFF JASSO
--- NOTE | 2019-12-13 12:40 | NUR ---
LIQUOR BRIDGE OPERATOR HELPER faxed referral info on this date to [facility] for placement. LIQUOR BRIDGE OPERATOR HELPER will continue to follow and provide support as needed.
--- NOTE | 2019-12-13 13:41 | NUR ---
TORADOL GIVEN FOR C/O RIGHT KNEE PAIN
--- NOTE | 2019-12-13 14:11 | NUR ---
STRAIGHT CATH URINE COLLECTED TORADOL GIVEN FOR RIGHT KNEE PAIN, PT STATES 03/18
--- NOTE | 2019-12-13 14:15 | NUR ---
TORADOL EFFECTIVE FOR PAIN
[2019-12-13 15:16] LABS: BILIRUBIN NEGATIVE (NEGATIVE); BLOOD 2+ (NEGATIVE); CLARITY CLEAR (CLEAR); COLOR YELLOW (YELLOW); GLUCOSE NEGATIVE (NEGATIVE); KETONE NEGATIVE (NEGATIVE); LEUKO ESTERASE NEGATIVE (NEGATIVE); NITRITE NEGATIVE (NEGATIVE); UROBILINOGEN 0.2 E.U./dl (0.2-1.0)
[2019-12-13 15:20] LABS: BACTERIA TRACE; EPITHELIAL CELLS 0-2; WBC 0-2 wbc/hpf (0-5)
[2019-12-13 16:00] VITALS: BP 85/41
[2019-12-13 16:06] LABS: ACID FAST SPEC PROCESSING Direct Inoculation (.)
[2019-12-13 17:41] VITALS: BP 100/52
--- NOTE | 2019-12-13 19:36 | NUR ---
24 HR chart check completed.
[2019-12-13 20:00] VITALS: BP 98/48
--- NOTE | 2019-12-13 20:01 | NUR ---
rasta given per order for right knee pain rated "7-8" see mar.
--- NOTE | 2019-12-13 21:00 | NUR ---
NORCO EFFECTIVE FOR KNEE PAIN PER PT. IT'S HELPING WITH THE PAIN.
--- NOTE | 2019-12-13 22:45 | NUR ---
ALERT ORIENTED X 3. UP TO BEDSIDE COMMODE AND BACK TO BED. LUNG SOUNDS CLEAR. ABD SOFT NORMAL ACTIVE X 4 QUAD. RIGHT KNEE SWOLLEN. RASH NOTED ON ARMS, UNDER BREAST/ABD FOLD AND GROIN AREA.
[2019-12-14] VITALS: BP 110/60
--- NOTE | 2019-12-14 | NUR ---
AAOX3 SITTING UP IN BED RECEIVING AEROSOL TX. IV FLUIDS INFUSING INTO LEFT ANTECUBITAL WITHOUT DIFFICULTY; SITE HAS SOME BLOOD AROUND IT. DRESSING CHANGED AT THIS TIME. PT. VOICES NO C/O AT THIS TIME; NO DISTRESS NOTED. CALL LIGHT WITHIN REACH. BED ALARM ON & BED IN LOW POSITION.
--- NOTE | 2019-12-14 06:30 | NUR ---
ASSISTED UP TO BEDSIDE COMMODE & BACK TO BED. TOOK MEDICATION WITHOUT DIFFICULTY. IV FLUDS CONTINUE TO INFUSE ORDERED; SITE ASYMPTOMATIC. CALL LIGHT WITHIN REACH.
[2019-12-14 07:21] LABS: BASO # 0.1 10*3/uL (0.0-0.1); BASO % 1.5 % (0.0-1.0); EOS # 0.1 10*3/uL (0.0-0.4); EOS % 1.5 % (1.0-4.0); HEMATOCRIT 26.4 % (37.0-47.0); HEMOGLOBIN 8.1 g/dl (12.0-16.0); LYMPH # 1.2 10*3/uL (1.3-4.4); MEAN CELL VOLUME 90.1 fl (81.0-99.0); MEAN CORPUSCULAR HGB 27.6 pg (27.0-31.0); MEAN CORPUSCULAR HGB CONC 30.7 g/dl (33.0-37.0); MEAN PLATELET VOLUME 9.8 fl (9.6-12.3); MONO # 0.6 10*3/uL (0.1-1.0); MONO % 15.1 % (3.0-9.0); NEUT # 2.1 10*3/uL (2.3-7.9); NEUT % 51.9 % (47.0-73.0); PLATELET COUNT AUTOMATED 274 10*3/uL (130-400); RED BLOOD COUNT 2.93 10*6/uL (4.10-5.10); RED CELL DISTRI WIDTH 15.9 % (0-14.5); WHITE BLOOD COUNT 4.1 10*3/uL (4.8-10.8)
[2019-12-14 07:28] LABS: BUN 13 mg/dl (7-24); CHLORIDE 115 mmol/L (98-107); CREATININE 0.64 mg/dL (0.55-1.02); SODIUM 144 mmol/L (136-145)
[2019-12-14 08:00] VITALS: BP 122/48
--- NOTE | 2019-12-14 09:00 | NUR ---
PATIENT MEDICATED WITH TORADOL FOR COMPLAINTS OF BILAT KNEE PAIN, MOSTLY IN THE RIGHT. WILL MONITOR FOR EFFECTIVENESS.
--- NOTE | 2019-12-14 09:30 | NUR ---
PATIENT IS MUCH MORE COMFORTABLE AT THIS TIME; TORADOL EFFECTIVE.
[2019-12-14 12:00] VITALS: BP 106/52
--- NOTE | 2019-12-14 14:00 | NUR ---
PATIENT MEDICATED WITH NORCO AT THIS TIME PER ORDER FOR COMPLAINTS OF PAIN IN RIGHT KNEE 05/18, WILL MONITOR.
--- NOTE | 2019-12-14 15:00 | NUR ---
PER PATIENT, PRN MEDICATION HAS RELIEVED PAIN.
[2019-12-14 16:00] VITALS: BP 104/57
[2019-12-14 20:00] VITALS: BP 129/80
[2019-12-15] VITALS: BP 112/57
--- NOTE | 2019-12-15 00:49 | NUR ---
PATIENT MEDICATED WITH NORCO FOR COMPLAINTS OF RIGHT KNEE PAIN. WILL CONTINUE TO MONITOR. CALL LIGHT IN REACH.
[2019-12-15 06:26] LABS: BASO # 0.1 10*3/uL (0.0-0.1); BASO % 1.4 % (0.0-1.0); EOS # 0.1 10*3/uL (0.0-0.4); EOS % 2.2 % (1.0-4.0); HEMATOCRIT 25.8 % (37.0-47.0); HEMOGLOBIN 7.8 g/dl (12.0-16.0); LYMPH # 1.3 10*3/uL (1.3-4.4); MEAN CELL VOLUME 90.5 fl (81.0-99.0); MEAN CORPUSCULAR HGB 27.4 pg (27.0-31.0); MEAN CORPUSCULAR HGB CONC 30.2 g/dl (33.0-37.0); MEAN PLATELET VOLUME 10.1 fl (9.6-12.3); MONO # 0.8 10*3/uL (0.1-1.0); MONO % 15.7 % (3.0-9.0); NEUT # 2.7 10*3/uL (2.3-7.9); NEUT % 53.5 % (47.0-73.0); PLATELET COUNT AUTOMATED 267 10*3/uL (130-400); RED BLOOD COUNT 2.85 10*6/uL (4.10-5.10)
[2019-12-15 06:56] LABS: ALKALINE PHOSPHATASE 102 U/L (45-117); BUN 13 mg/dl (7-24); CHLORIDE 112 mmol/L (98-107); CREATININE 0.68 mg/dL (0.55-1.02); POTASSIUM 4.1 mmol/L (3.5-5.1); SGOT/AST 42 IU/L (3-35); SGPT/ALT 33 U/L (12-78); SODIUM 141 mmol/L (136-145); TOTAL PROTEIN 6.6 gm/dL (6.4-8.2)
[2019-12-15 08:00] VITALS: BP 99/50
[2019-12-15 12:00] VITALS: BP 101/51
[2019-12-15 16:00] VITALS: BP 94/57
[2019-12-15 20:00] VITALS: BP 124/61
--- NOTE | 2019-12-15 20:32 | NUR ---
DR. RIOS INTO SEE PATIENT. WANTS ARRANGEMENTS MADE TO HAVE PATIENT TRANSFERRED TO [facility] FOR [facility]TH[facility].
--- NOTE | 2019-12-15 20:59 | NUR ---
CATYHER TOMPKINS DAUGHTER IN LAW NOTIFIED THAT PATIENT WILL BE TRANSFERRED TO [facility] WHEN THEY GET A BED AVAILABLE. TOLD HER I WOULD NOTIFY HER WHEN SHE IS TRANSFERRED.
--- NOTE | 2019-12-15 22:14 | NUR ---
PATIENT AND FAMILY NOTIFIED OF TRANSPORT TO NEW FACILITY. [facility] TO [employer] AT [phone]. PAPERWORK COMPLETED AND REPORT CALL TO RECEIVING NURSE AT [facility].
--- NOTE | 2019-12-15 22:53 | NUR ---
PATIENT LEFT WITH [facility] AT THIS TIME TO BE TRANSFERRED TO [facility].
== END 2019-12-15 22:53 | disposition short-term general hospital (02) | DRG 548 ==
LOC: ED 11:57 → 5E 16:52 → EDHOLD 16:52 → 5E 17:03
PROVIDERS: Hospitalist; Internal Medicine Nephrology; Nurse Practitioner Family; ADMIT Internal Medicine
PROC: 0S9C3ZZ Drainage of Right Knee Joint, Percutaneous Approach (ICD-10-PCS; principal; 2019-12-12)
DX: M00.9 Pyogenic arthritis, unspecified (principal); E43 Unspecified severe protein-calorie malnutrition; N30.01 Acute cystitis with hematuria; E87.1 Hypo-osmolality and hyponatremia; E87.2 Acidosis; F33.9 Major depressive disorder, recurrent, unspecified; M25.461 Effusion, right knee; R82.71 Bacteriuria; D64.9 Anemia, unspecified; R73.9 Hyperglycemia, unspecified; M17.0 Bilateral primary osteoarthritis of knee; I10 Essential (primary) hypertension; E03.9 Hypothyroidism, unspecified; E78.2 Mixed hyperlipidemia; F41.9 Anxiety disorder, unspecified; M81.0 Age-related osteoporosis without current pathological fracture; I25.10 Atherosclerotic heart disease of native coronary artery without angina pectoris; J44.9 Chronic obstructive pulmonary disease, unspecified; M25.462 Effusion, left knee; Z68.23 Body mass index [BMI] 23.0-23.9, adult; Z88.2 Allergy status to sulfonamides; Z88.0 Allergy status to penicillin; Z90.49 Acquired absence of other specified parts of digestive tract; Z90.710 Acquired absence of both cervix and uterus; Z88.3 Allergy status to other anti-infective agents; Z82.49 Family history of ischemic heart disease and other diseases of the circulatory system; Z82.3 Family history of stroke; Z88.1 Allergy status to other antibiotic agents; Z79.899 Other long term (current) drug therapy; Z79.82 Long term (current) use of aspirin; Z83.6 Family history of other diseases of the respiratory system

== ENCOUNTER 2020-03-25 10:06 | Emergency (ER) | payer OTHER, MEDICAID ==
[~2020-03-25] VITALS: Ht 152.4 cm; Wt 56.2 kg
[2020-03-25 10:15] VITALS: BP 109/46
[2020-03-25 11:27] LABS: BILIRUBIN NEGATIVE (NEGATIVE); BLOOD 1+ (NEGATIVE); CLARITY SL CLOUDY (CLEAR); COLOR YELLOW (YELLOW); GLUCOSE NEGATIVE (NEGATIVE); KETONE NEGATIVE (NEGATIVE); PH 6.5 (5.0-9.0); SPECIFIC GRAVITY 1.005 (1.005-1.030)
[2020-03-25 11:28] LABS: BACTERIA TRACE; LEUKO ESTERASE 2+ (NEGATIVE); NITRITE NEGATIVE (NEGATIVE); UROBILINOGEN 0.2 E.U./dl (0.2-1.0)
[2020-03-25 11:38] LABS: BASO # 0.1 10*3/uL (0.0-0.1); BASO % 0.9 % (0.0-1.0); EOS # 0.1 10*3/uL (0.0-0.4); EOS % 0.8 % (1.0-4.0); HEMATOCRIT 27.2 % (37.0-47.0); LYMPH # 1.9 10*3/uL (1.3-4.4); LYMPH % 24.5 % (27.0-41.0); MEAN CELL VOLUME 86.1 fl (81.0-99.0); MEAN CORPUSCULAR HGB 26.3 pg (27.0-31.0); MEAN CORPUSCULAR HGB CONC 30.5 g/dl (33.0-37.0); MEAN PLATELET VOLUME 9.5 fl (9.6-12.3); MONO # 0.8 10*3/uL (0.1-1.0); MONO % 10.4 % (3.0-9.0); NEUT # 4.9 10*3/uL (2.3-7.9); NEUT % 63.1 % (47.0-73.0); PLATELET COUNT AUTOMATED 334 10*3/uL (130-400); RED BLOOD COUNT 3.16 10*6/uL (4.10-5.10); RED CELL DISTRI WIDTH 16.6 % (0-14.5); WHITE BLOOD COUNT 7.7 10*3/uL (4.8-10.8)
[2020-03-25 11:53] LABS: CHLORIDE 106 mmol/L (98-107); POTASSIUM 4.1 mmol/L (3.5-5.1); SODIUM 137 mmol/L (136-145)
[2020-03-25 11:55] LABS: ALBUMIN 2.5 gm/dl (3.1-4.5); ALKALINE PHOSPHATASE 103 U/L (45-117); BUN 15 mg/dl (7-24); CREATININE 0.95 mg/dL (0.55-1.02); SGOT/AST 15 IU/L (3-35); SGPT/ALT 13 U/L (12-78); TOTAL PROTEIN 8.1 gm/dL (6.4-8.2)
[2020-03-25] MEDS ORDERED: CIPRO250 MG PO (14:35)
== END 2020-03-25 15:03 | disposition home or self-care (01) ==
LOC: ED 10:06
PROVIDERS: Emergency Medicine
DX: N39.0 Urinary tract infection, site not specified (principal); R51 Headache; M25.461 Effusion, right knee; I10 Essential (primary) hypertension; M19.90 Unspecified osteoarthritis, unspecified site; J44.9 Chronic obstructive pulmonary disease, unspecified; E03.9 Hypothyroidism, unspecified; E78.00 Pure hypercholesterolemia, unspecified; I25.2 Old myocardial infarction; Z79.899 Other long term (current) drug therapy; Z79.82 Long term (current) use of aspirin; Z88.2 Allergy status to sulfonamides; Z88.1 Allergy status to other antibiotic agents; Z86.718 Personal history of other venous thrombosis and embolism

== ENCOUNTER 2020-05-24 14:50 | Inpatient (IN) | payer OTHER, MEDICAID ==
[~2020-05-24] VITALS: Ht 152.4 cm; Wt 57.7 kg
[~2020-05-24 14:50] MED LIST changes: +CIPRO250 MG PO
[2020-05-24 15:22] VITALS: BP 106/56
[2020-05-24 16:31] LABS: BASO # 0.1 10*3/uL (0.0-0.1); BASO % 1.6 % (0.0-1.0); EOS # 0.2 10*3/uL (0.0-0.4); EOS % 2.6 % (1.0-4.0); HEMATOCRIT 28.4 % (37.0-47.0); LYMPH # 1.9 10*3/uL (1.3-4.4); LYMPH % 32.9 % (27.0-41.0); MEAN CORPUSCULAR HGB 25.4 pg (27.0-31.0); MEAN CORPUSCULAR HGB CONC 30.3 g/dl (33.0-37.0); MEAN PLATELET VOLUME 9.2 fl (9.6-12.3); MONO # 0.7 10*3/uL (0.1-1.0); MONO % 12.2 % (3.0-9.0); NEUT # 2.9 10*3/uL (2.3-7.9); NEUT % 50.5 % (47.0-73.0); PLATELET COUNT AUTOMATED 378 10*3/uL (130-400); RED BLOOD COUNT 3.38 10*6/uL (4.10-5.10); RED CELL DISTRI WIDTH 17.4 % (0-14.5); WHITE BLOOD COUNT 5.7 10*3/uL (4.8-10.8)
--- NOTE | 2020-05-24 16:37 | NUR ---
THE PATIENT IS UNABLE TO PROVIDE A URINE SAMPLE
[2020-05-24 16:48] LABS: ALBUMIN 2.5 gm/dl (3.1-4.5); ALKALINE PHOSPHATASE 106 U/L (45-117); BUN 21 mg/dl (7-24); CHLORIDE 106 mmol/L (98-107); CREATININE 1.44 mg/dL (0.55-1.02); POTASSIUM 3.8 mmol/L (3.5-5.1); SGOT/AST 16 IU/L (3-35); SGPT/ALT 15 U/L (12-78); SODIUM 139 mmol/L (136-145); TOTAL PROTEIN 8.6 gm/dL (6.4-8.2)
[2020-05-24 16:52] LABS: TROPONIN I < 0.015 ng/ml (<0.045)
[2020-05-24 16:57] LABS: BILIRUBIN NEGATIVE (NEGATIVE); BLOOD NEGATIVE (NEGATIVE); CLARITY CLEAR (CLEAR); COLOR YELLOW (YELLOW); GLUCOSE NEGATIVE (NEGATIVE); KETONE TRACE (NEGATIVE); LEUKO ESTERASE 2+ (NEGATIVE); NITRITE NEGATIVE (NEGATIVE)
[2020-05-24 17:05] LABS: BACTERIA 2+; EPITHELIAL CELLS TNTC; RBC 0-2 rbc/hpf (0-2); WBC 21-30 wbc/hpf (0-5)
[2020-05-24 17:06] LABS: MUCOUS TRACE
[2020-05-24 17:18] VITALS: BP 116/48
--- NOTE | 2020-05-24 18:40 | NUR ---
Time: 1839 A 75 year old FEMALE admitted to 4E under services of DR. MANE PACHECO,[facility]. Pt. arrived via ambulatory from ER. Chief complaint: UTI. RAYMUNDO MCARTHUR
--- NOTE | 2020-05-24 18:51 | NUR ---
Time: 1851 A 75 year old FEMALE admitted to 4E under services of DR. MANE PACHECO,JIM. Pt. arrived via stretcher from ER. Chief complaint: HEIDI. ELVA POLANCO
--- NOTE | 2020-05-24 19:00 | NUR ---
ATTEMPTED TO REACH [facility] AT THIS TIME REGARDING MED LIST. [facility] CLOSED.
--- NOTE | 2020-05-24 19:17 | NUR ---
ORDERS FROM DR GILLIAM AT THIS TIME
[2020-05-24 20:00] VITALS: BP 108/50
--- NOTE | 2020-05-24 20:12 | NUR ---
PATIENT RESTING IN BED WITH NO NEEDS MADE. BOXED LUNCH PROVIDED PER REQUEST. DENIES NEEDS AT THIS TIME. FLUIDS INFUSING PER ORDER. BED IN LOWEST POSITION, CALL LIGHT IN REACH
--- NOTE | 2020-05-24 21:56 | NUR ---
PATIENT RESTING IN BED WITH NO COMPLAINTS. BED IN LOWEST POSITION, CALL LIGHT IN REACH, BED ALARM ON
[2020-05-25] VITALS: BP 104/49
[2020-05-25 06:23] LABS: BASO # 0.1 10*3/uL (0.0-0.1); BASO % 1.4 % (0.0-1.0); EOS # 0.2 10*3/uL (0.0-0.4); EOS % 3.7 % (1.0-4.0); HEMATOCRIT 27.5 % (37.0-47.0); LYMPH # 1.4 10*3/uL (1.3-4.4); LYMPH % 27.6 % (27.0-41.0); MEAN CELL VOLUME 85.1 fl (81.0-99.0); MEAN CORPUSCULAR HGB 25.1 pg (27.0-31.0); MEAN CORPUSCULAR HGB CONC 29.5 g/dl (33.0-37.0); MEAN PLATELET VOLUME 9.3 fl (9.6-12.3); MONO # 0.7 10*3/uL (0.1-1.0); MONO % 13.2 % (3.0-9.0); NEUT # 2.7 10*3/uL (2.3-7.9); NEUT % 53.7 % (47.0-73.0); PLATELET COUNT AUTOMATED 317 10*3/uL (130-400); RED BLOOD COUNT 3.23 10*6/uL (4.10-5.10); RED CELL DISTRI WIDTH 17.4 % (0-14.5); WHITE BLOOD COUNT 5.1 10*3/uL (4.8-10.8)
[2020-05-25 06:33] LABS: BUN 22 mg/dl (7-24); CHLORIDE 110 mmol/L (98-107); POTASSIUM 4.1 mmol/L (3.5-5.1); SODIUM 140 mmol/L (136-145)
[2020-05-25 08:00] VITALS: BP 110/68
--- NOTE | 2020-05-25 08:00 | NUR ---
PATIENT SITTING UP IN CHAIR. NO STATED COMPLAINTS, BUT DOES STATED THAT KNEE JOINTS ARE SORE. DENIES ANY OTHER PAIN AT THIS TIME. RESPIRATIONS ARE EASY AND REGULAR ON ROOM AIR, NO SOB NOTED. PT ABLE TO REPOSITION SELF AND IS ENCOURAGED TO DO SO. BED IN LOWEST LOCKED POSITION AND CALL LIGHT WITHIN REACH
--- NOTE | 2020-05-25 08:10 | NUR ---
PHYSICAL THERAPY Screen received, pt admitted from home with a UTI. Please consult PT if pts funcitonal status declines from baseline. Thank you. Wagner Bentley SPT Twyla Singer PT
--- NOTE | 2020-05-25 09:00 | NUR ---
Hr Shared Services Consultant in to talk to patient. Patient states lives at home alone with her son and ttohyukj-cg-ywe living 300 yards away from her in a trailer. There are 12 steps in the home. Physician: Dr. Vo Pharmacy: [facility]: has had [facility] in the past Patient's level of ADLs: MINIMAL ASSIST Patient has working utilities: yes DME: cane, walker, BSC, shower chair, hospital bed Follow-up physician's appointment after d/c: she prefers to make her own follow up appt after discharge Does patient want to access PORTAL?: no Discharge plan discussed with patient. She lives at home alone with her son and lqjkqzyl-wj-gwr living 300 yards away from her in a trailer. She is independent in her ADLs and uses either a walker or cane for ambulation. She has a regular bed upstairs which she occasionally sleeps in and she has the hospital bed on the first floor. She states she has been trying to talk her son into moving her regular bed downstairs because it is more comfortable than the hospital bed. She states her son and qvxfqyph-rv-wuk check in on her frequently and the grandchildren are in and out all day long. She does walk over to her son's house a couple of time daily. Discussed home health care services and she has had [facility] in the past but declines at this time. CM will continue to follow for any discharge planning needs. When medically stable she will be discharged to home. Her son or granddaughter will provide transportation on discharge. TIFF JASSO
--- NOTE | 2020-05-25 09:37 | NUR ---
PT COMPLAINS OF RIGHT KNEE AND ANKLE PAIN AND SWELLING. DR. PERES NOTIFIED AND ORDERS OBTAINED AND ENTERED.
[2020-05-25] MEDS ORDERED: TOPICORT 0.25%15 GM T (09:47)
--- NOTE | 2020-05-25 10:16 | NUR ---
MOTRIN ADMINISTERED AT THIS TIME FOR COMPLAINTS OF KNEE AND ANKLE PAIN. WILL MONITOR FOR EFFECTIVENESS.
--- NOTE | 2020-05-25 11:13 | NUR ---
PT IS ASLEEP IN BED. MOTRIN CONSIDERED EFFECTIVE.
[2020-05-25 12:00] VITALS: BP 112/58
[2020-05-25 15:42] LABS: COLOR YELLOW (YELLOW)
[2020-05-25 15:43] LABS: BILIRUBIN NEGATIVE (NEGATIVE); BLOOD 3+ (NEGATIVE); CLARITY CLEAR (CLEAR); GLUCOSE NEGATIVE (NEGATIVE); KETONE NEGATIVE (NEGATIVE); LEUKO ESTERASE 2+ (NEGATIVE); NITRITE NEGATIVE (NEGATIVE); SPECIFIC GRAVITY 1.005 (1.005-1.030); UROBILINOGEN 0.2 E.U./dl (0.2-1.0)
[2020-05-25 15:50] LABS: BACTERIA TRACE; RBC 0-2 rbc/hpf (0-2)
[2020-05-25 15:56] LABS: IRON 19 ug/dL (50-170); TOTAL IRON BINDING CAPACITY 238 ug/dl (250-450)
[2020-05-25 16:00] VITALS: BP 125/50
--- NOTE | 2020-05-25 17:23 | NUR ---
PATIENT SITTING UP IN CHAIR AT BEDSIDE. NO STATED COMPLAINTS AT THIS TIME. DENIES ANY PAIN. RESPIRATIONS ARE EASY AND REGULAR. NO SOB NOTED ON ROOM AIR. PT IS ABLE TO REPOSITION HERSELF AND IS ENCOURAGED TO DO SO FREQUENTLY. CALL LIGHT WITHIN REACH. WILL CONTINUE TO MONITOR.
--- NOTE | 2020-05-25 19:52 | NUR ---
PATIENT RESTING IN BED C/O RIGHT KNEE PAIN. STATES SHE TAKES MOTRIN AT HOME WHEN THIS HAPPENS. REQUESTING OINMENT THAT IS SCHEDULED FOR 0 NOW. NO OTHER NEEDS AT THIS TIME. ENCOURAGED TO COUGH AND DEEP BREATH. BED IN LOWEST POSITION, CALL LIGHT IN REACH
--- NOTE | 2020-05-25 19:56 | NUR ---
DR BYERS AWARE OF PATIENT REQUESTING MOTRIN FOR KNEE PAIN. STATES SHE WILL PUT SOMETHING IN.
[2020-05-25 20:00] VITALS: BP 132/55
--- NOTE | 2020-05-25 20:08 | NUR ---
MEDICATED WITH PRN NORCO FOR C/O RIGHT KNEE PAIN RATED 8/10 ON A 0/10 PAIN SCALE. WILL MONITOR
--- NOTE | 2020-05-25 21:08 | NUR ---
MEDICATION NOT EFFECTIVE PER PATIENT
[2020-05-26] VITALS: BP 128/50
--- NOTE | 2020-05-26 01:24 | NUR ---
PATIENT RESTING IN BED WITH NO S/S OF DISTRESS. FLUIDS INFUSING PER ORDER. BED IN LOWEST POSITION, CALL LIGHT IN REACH
[2020-05-26 06:49] LABS: ALBUMIN 2.4 gm/dl (3.1-4.5); ALKALINE PHOSPHATASE 98 U/L (45-117); BUN 18 mg/dl (7-24); CHLORIDE 108 mmol/L (98-107); CREATININE 0.78 mg/dL (0.55-1.02); POTASSIUM 4.2 mmol/L (3.5-5.1); SGOT/AST 14 IU/L (3-35); SGPT/ALT 13 U/L (12-78); SODIUM 137 mmol/L (136-145); TOTAL PROTEIN 8.2 gm/dL (6.4-8.2)
[2020-05-26 08:00] VITALS: BP 136/50; BP 143/88
[2020-05-26 12:00] VITALS: BP 132/60
[2020-05-26 16:00] VITALS: BP 103/48
[2020-05-26 20:00] VITALS: BP 93/42
[2020-05-26 21:28] VITALS: BP 100/44
[2020-05-27] VITALS: BP 116/52
--- NOTE | 2020-05-27 02:20 | NUR ---
MEDICATED WITH PRN NORCO FOR C/O RIGHT KNEE PAIN. WILL MONITOR
--- NOTE | 2020-05-27 02:50 | NUR ---
24 HR chart check completed.
--- NOTE | 2020-05-27 03:20 | NUR ---
MEDICATION EFFECTIVE PER PATIENT
[2020-05-27 07:25] LABS: CHLORIDE 115 mmol/L (98-107); POTASSIUM 4.2 mmol/L (3.5-5.1); SODIUM 144 mmol/L (136-145)
[2020-05-27 07:35] LABS: ALBUMIN 2.3 gm/dl (3.1-4.5); ALKALINE PHOSPHATASE 105 U/L (45-117); BUN 17 mg/dl (7-24); CREATININE 0.82 mg/dL (0.55-1.02); SGOT/AST 20 IU/L (3-35); SGPT/ALT 12 U/L (12-78); TOTAL PROTEIN 7.8 gm/dL (6.4-8.2)
[2020-05-27 08:00] VITALS: BP 137/53
--- NOTE | 2020-05-27 08:36 | NUR ---
PT RESTING IN BED NO DISTRESS NOTED. WILL MONITOR
--- NOTE | 2020-05-27 08:37 | NUR ---
PHYSICAL THERAPY Physical Therapy evaluation completed on 4E with full evaluation to follow. Low complexity PT evaluation per chart review and evaluation, [id number]. Recommend physical therapy per plan of care and Home health services upon discharge. Thank you for this referral. Nayely Sanchez,PT,DPT
--- NOTE | 2020-05-27 08:45 | NUR ---
Occupational Therapy evaluation completed on four with full evaluation to follow. Recommend occupational therapy per plan of care and Home with HH upon discharge. Thank you for this referral. Shirley Salazar OTR/L
--- NOTE | 2020-05-27 09:00 | NUR ---
CM in to see patient. She is sitting up in her bedside chair. Discussed home health care services and she declines. Discussed knee x-ray with Dr. Cornejo. Awaiting Dr. Waldron to round. She helps take care of her grandchildren at home. Patient asked if she should take it easier at home. She states she normally walks home with her grandchildren 3-4 times a day and that it is approximately 300 yards. Discussed her taking it easier at home but to discuss with Dr. Waldron and she verbalized an understanding. When medically stable she will be discharged to home. CM will continue to follow for any discharge planning needs.
[2020-05-27 12:00] VITALS: BP 145/51
--- NOTE | 2020-05-27 14:21 | NUR ---
PT REQUESTED AND GIVEN NORCO FOR C/O RIGHT KNEE PAIN PT RATES PAIN 6/10 WILL MONITOR
[2020-05-27] MEDS ORDERED: NORCO 5-325 TA1 EACH PO (14:53)
[2020-05-27] MEDS ORDERED: CYMBALTA30 MG PO (14:55)
[2020-05-27 14:56] LABS: BODY FLUID WBC 5790 /uL
--- NOTE | 2020-05-27 15:11 | NUR ---
PT REFUSED DC WOUND PHOTOS
[2020-05-27 16:00] VITALS: BP 140/55
[2020-05-27 16:21] LABS: BF LYMPHOCYTES 19 %; BF MESOTHELIALS 5 %; BF MONOCYTES 16 %; BF NEUTROPHILS 60 %
--- NOTE | 2020-05-27 16:25 | NUR ---
Discharge instructions reviewed with patient/family. Patient receptive and verbalizes understanding. Follow-up care arranged. Written instructions given to patient/family. REEMA TURNER
== END 2020-05-27 16:25 | disposition home or self-care (01) | DRG 640 ==
LOC: ED 14:50 → 4E 17:33 → EDHOLD 17:33 → 4E 18:19
PROVIDERS: Internal Medicine; Physician Assistant; ADMIT Internal Medicine
PROC: 0S9C3ZZ Drainage of Right Knee Joint, Percutaneous Approach (ICD-10-PCS; principal; 2020-05-27)
DX: E86.0 Dehydration (principal); N17.0 Acute kidney failure with tubular necrosis; N39.0 Urinary tract infection, site not specified; E44.0 Moderate protein-calorie malnutrition; D64.9 Anemia, unspecified; E61.1 Iron deficiency; E87.8 Other disorders of electrolyte and fluid balance, not elsewhere classified; E88.09 Other disorders of plasma-protein metabolism, not elsewhere classified; F41.9 Anxiety disorder, unspecified; I25.10 Atherosclerotic heart disease of native coronary artery without angina pectoris; J44.9 Chronic obstructive pulmonary disease, unspecified; F32.9 Major depressive disorder, single episode, unspecified; I10 Essential (primary) hypertension; M81.0 Age-related osteoporosis without current pathological fracture; R31.9 Hematuria, unspecified; M17.0 Bilateral primary osteoarthritis of knee; Z88.1 Allergy status to other antibiotic agents; Z88.2 Allergy status to sulfonamides; Z88.8 Allergy status to other drugs, medicaments and biological substances; Z90.710 Acquired absence of both cervix and uterus; Z90.49 Acquired absence of other specified parts of digestive tract; Z83.3 Family history of diabetes mellitus; Z83.6 Family history of other diseases of the respiratory system; Z82.49 Family history of ischemic heart disease and other diseases of the circulatory system; Z79.899 Other long term (current) drug therapy

== ENCOUNTER → 2020-07-16 | Outpatient (CLI) | payer OTHER, MEDICAID ==
[~2020-07-16] MED LIST changes: +CYMBALTA30 MG PO; +NORCO 5-325 TA1 EACH PO; +TOPICORT 0.25%15 GM T
== END | disposition home or self-care (01) ==
LOC: MAMMO 09:20
PROVIDERS: ATTEND Internal Medicine
DX: Z12.31 Encounter for screening mammogram for malignant neoplasm of breast (principal)

== ENCOUNTER → 2020-10-06 | Outpatient (CLI) | payer OTHER, MEDICAID ==
[~2020-10-06] MED LIST changes: +ASPIRIN81 M1 PO; +CYMBALTA60 MG PO; +PRINIVIL10 MG PO
[2020-10-06 10:42] LABS: BASO # 0.1 10*3/uL (0.0-0.1); BASO % 1.7 % (0.0-1.0); EOS # 0.1 10*3/uL (0.0-0.4); EOS % 2.1 % (1.0-4.0); HEMATOCRIT 36.8 % (37.0-47.0); LYMPH # 1.7 10*3/uL (1.3-4.4); LYMPH % 32.6 % (27.0-41.0); MEAN CELL VOLUME 89.1 fl (81.0-99.0); MEAN CORPUSCULAR HGB 27.1 pg (27.0-31.0); MEAN CORPUSCULAR HGB CONC 30.4 g/dl (33.0-37.0); MEAN PLATELET VOLUME 9.1 fl (9.6-12.3); MONO # 0.5 10*3/uL (0.1-1.0); MONO % 9.2 % (3.0-9.0); NEUT # 2.9 10*3/uL (2.3-7.9); PLATELET COUNT AUTOMATED 323 10*3/uL (130-400); RED BLOOD COUNT 4.13 10*6/uL (4.10-5.10); RED CELL DISTRI WIDTH 16.3 % (0-14.5); WHITE BLOOD COUNT 5.3 10*3/uL (4.8-10.8)
[2020-10-06 11:14] LABS: BUN 12 mg/dl (7-24); CHLORIDE 111 mmol/L (98-107); POTASSIUM 4.3 mmol/L (3.5-5.1); SGOT/AST 20 IU/L (3-35); SODIUM 143 mmol/L (136-145)
[2020-10-06 11:21] LABS: ALKALINE PHOSPHATASE 123 U/L (45-117); CHOLESTEROL 124 mg/dL (<200); CREATININE 0.98 mg/dL (0.55-1.02); FREE T4 0.95 ng/dl (0.76-1.46); HDL CHOLESTEROL 78 mg/dl (40-60); LDL CHOLESTEROL 28 mg/dL (9-159); SGPT/ALT 19 U/L (12-78); TOTAL PROTEIN 8.4 gm/dL (6.4-8.2); TRIGLYCERIDES 88 mg/dl (<150); VLDL CHOLESTEROL 18 mg/dL (6-40)
--- NOTE | 2020-10-06 13:00 | NUR ---
INFORMED CONSENT OBTAINED FOR LEXISCAN NUCLEAR STRESS TEST WITH DR. GILLIAM. RESTING EKG NSR WITH A RESTING HR OF 67 WITH BP OF 118/64. LUNGS CLEAR WITH SPO2 OF 100% ON ROOM AIR. PT COMPLETED A 1:00 LEXISCAN PROTOCOL RECEIVING LEXISCAN 0.4 MG IV OVER 10 SECONDS. HAD NO CHEST PAIN OR ANY EKG CHANGES. HAD EPISODE OF COUGHING CAUSING GAGGING IN FIRST MINUTE OF RECOVERY. HAD A PEAK HR OF 113 WITH BP OF 114/62. LAST RECOVERY HR OF 94 WITH BP OF 126/60. AWAITING SCANNING IN STABLE CONDITION.
== END | disposition home or self-care (01) ==
LOC: CARD 10-05 11:10 → LAB 00:18 → CARD 00:18
PROVIDERS: ATTEND Internal Medicine
DX: E78.5 Hyperlipidemia, unspecified (principal); R06.02 Shortness of breath

== ENCOUNTER → 2020-10-29 | Outpatient (CLI) | payer OTHER, MEDICAID | END | disposition home or self-care (01) | LOC: RAD 16:00 | PROVIDERS: ATTEND Internal Medicine | DX: M25.561 Pain in right knee (principal) ==

== ENCOUNTER → 2020-11-26 | Outpatient (CLI) | payer OTHER, MEDICAID ==
[2020-11-26 14:25] LABS: BILIRUBIN Negative (Negative); BLOOD 2+ (Negative); CLARITY Clear (Clear); COLOR Yellow (Yellow); GLUCOSE Negative (Negative); KETONE Negative (Negative); LEUKO ESTERASE 1+ (Negative); NITRITE Negative (Negative)
[2020-11-26 14:46] LABS: CALCIUM OXALATE CRYSTALS Trace
[2020-11-26 14:47] LABS: BACTERIA TRACE
[2020-11-26 14:50] LABS: FREE T4 1.27 ng/dl (0.76-1.46)
[2020-11-26 14:58] LABS: THYROID STIM HORMONE (HS) 1.19 uIU/ml (0.358-4.75)
== END | disposition home or self-care (01) ==
LOC: LAB 13:49
PROVIDERS: ATTEND Internal Medicine
DX: E03.9 Hypothyroidism, unspecified (principal); R35.0 Frequency of micturition; M54.9 Dorsalgia, unspecified

== ENCOUNTER → 2021-01-01 | Outpatient (CLI) | payer OTHER, MEDICAID ==
[2021-01-01 10:44] LABS: BUN 24 mg/dl (7-24); CHLORIDE 107 mmol/L (98-107); CREATININE 0.99 mg/dL (0.55-1.02); FREE T4 1.26 ng/dl (0.76-1.46); SODIUM 140 mmol/L (136-145)
[2021-01-01 10:52] LABS: THYROID STIM HORMONE (HS) 0.634 uIU/ml (0.358-4.75)
== END | disposition home or self-care (01) ==
LOC: LAB 09:24
PROVIDERS: ATTEND Internal Medicine
DX: I10 Essential (primary) hypertension (principal); E03.9 Hypothyroidism, unspecified

== ENCOUNTER → 2021-02-05 | Outpatient (CLI) | payer OTHER, MEDICAID ==
[2021-02-05 11:11] LABS: FREE T4 1.41 ng/dl (0.76-1.46)
[2021-02-05 11:16] LABS: THYROID STIM HORMONE (HS) 0.775 uIU/ml (0.358-4.75)
[2021-02-06 05:06] LABS: RHEUMATOID ARTHRITIS FACTOR <10.0 IU/mL (0.0-13.9)
== END | disposition home or self-care (01) ==
LOC: LAB 10:22
PROVIDERS: ATTEND Internal Medicine
DX: M17.11 Unilateral primary osteoarthritis, right knee (principal); I10 Essential (primary) hypertension

== ENCOUNTER → 2021-04-14 | Outpatient (CLI) | payer OTHER, MEDICAID ==
[~2021-04-14] MED LIST changes: +HYDROCODON-ACE1 EACH PO; +LEVOTHYROXINE100 MC2 PO; +TOPICORT60 G2 T; +TRAMADOL HCL50 MG PO
[2021-04-14 14:11] LABS: ALBUMIN 3.1 gm/dl (3.1-4.5); BUN 22 mg/dl (7-24); CHLORIDE 107 mmol/L (98-107); CREATININE 0.92 mg/dL (0.55-1.02); POTASSIUM 3.9 mmol/L (3.5-5.1); SODIUM 136 mmol/L (136-145)
[2021-04-14 14:27] LABS: ALKALINE PHOSPHATASE 144 U/L (45-117); FREE T4 0.66 ng/dl (0.76-1.46); SGOT/AST 18 IU/L (3-35); SGPT/ALT 20 U/L (12-78); TOTAL PROTEIN 7.1 gm/dL (6.4-8.2)
== END | disposition home or self-care (01) ==
LOC: LAB 13:11
PROVIDERS: ATTEND Internal Medicine
DX: I10 Essential (primary) hypertension (principal)

== ENCOUNTER 2021-09-05 09:24 | Observation (INO) | payer OTHER, MEDICAID ==
[~2021-09-05] VITALS: Ht 152 cm; Wt 62.0 kg
[2021-09-05 09:33] VITALS: BP 132/63
[2021-09-05 10:05] LABS: BASO # 0.1 10*3/uL (0.0-0.1); BASO % 1.4 % (0.0-1.0); EOS # 0.2 10*3/uL (0.0-0.4); EOS % 3.9 % (1.0-4.0); HEMATOCRIT 36.2 % (37.0-47.0); LYMPH # 1.8 10*3/uL (1.3-4.4); LYMPH % 33.8 % (27.0-41.0); MEAN CELL VOLUME 89.2 fl (81.0-99.0); MEAN CORPUSCULAR HGB 28.6 pg (27.0-31.0); MEAN PLATELET VOLUME 9.5 fl (9.6-12.3); MONO # 0.5 10*3/uL (0.1-1.0); MONO % 10.4 % (3.0-9.0); NEUT # 2.6 10*3/uL (2.3-7.9); NEUT % 50.1 % (47.0-73.0); PLATELET COUNT AUTOMATED 279 10*3/uL (130-400); RED BLOOD COUNT 4.06 10*6/uL (4.10-5.10); RED CELL DISTRI WIDTH 14.1 % (0-14.5); WHITE BLOOD COUNT 5.2 10*3/uL (4.8-10.8)
[2021-09-05 10:21] LABS: ACT PARTIAL THROMBO TIME 25.4 SECONDS (20.0-32.1); ALBUMIN 2.7 gm/dl (3.1-4.5); ALKALINE PHOSPHATASE 118 U/L (45-117); BUN 16 mg/dl (7-24); CHLORIDE 109 mmol/L (98-107); CREATININE 0.84 mg/dL (0.55-1.02); POTASSIUM 3.7 mmol/L (3.5-5.1); SGOT/AST 13 IU/L (3-35); SGPT/ALT 21 U/L (12-78); SODIUM 141 mmol/L (136-145)
[2021-09-05] MEDS ORDERED: CYMBALTA60 MG PO (12:44)
[2021-09-05] MEDS ORDERED: BENZONATATE100 M1 PO (12:45)
[2021-09-05] MEDS ORDERED: PHARMASSURE FO0.4 MG PO (12:47)
[2021-09-05] MEDS ORDERED: GRISEOFULV125 MG/51 PO (12:48)
[2021-09-05] MEDS ORDERED: Nystatin Cream15 GM T (12:49)
[2021-09-05] MEDS ORDERED: 'zithromax250 MG PO (12:51)
[2021-09-05 13:00] VITALS: BP 132/63
[2021-09-05 16:15] VITALS: BP 130/62
[2021-09-05 19:03] VITALS: BP 130/72
[2021-09-05 22:18] VITALS: BP 120/57
[2021-09-05 22:36] VITALS: BP 116/72
[2021-09-06 08:00] VITALS: BP 155/68
[2021-09-06 12:00] VITALS: BP 124/54
[2021-09-06 16:00] VITALS: BP 114/54
[2021-09-06 20:00] VITALS: BP 123/52
[2021-09-07] VITALS: BP 127/74
[2021-09-07 08:00] VITALS: BP 146/60
[2021-09-07 12:00] VITALS: BP 117/65
[2021-09-07] MEDS ORDERED: PREDNISONE10 MG PO (14:57)
[2021-09-07] MEDS ORDERED: ZITHROMAX250 MG PO (15:04)
== END 2021-09-07 16:00 | disposition home or self-care (01) ==
LOC: ED 09:24 → 4E 12:05 → EDHOLD 12:05 → 4E 12:05 → EDHOLD 12:07 → 4E 20:48
PROVIDERS: Emergency Medicine; ADMIT Internal Medicine; ATTEND Internal Medicine
DX: J44.1 Chronic obstructive pulmonary disease with (acute) exacerbation (principal); L30.4 Erythema intertrigo; R26.2 Difficulty in walking, not elsewhere classified; M19.90 Unspecified osteoarthritis, unspecified site; Z20.822 Contact with and (suspected) exposure to COVID-19; I25.10 Atherosclerotic heart disease of native coronary artery without angina pectoris; I10 Essential (primary) hypertension; E78.5 Hyperlipidemia, unspecified; E03.9 Hypothyroidism, unspecified; F41.9 Anxiety disorder, unspecified; F32.9 Major depressive disorder, single episode, unspecified; M81.0 Age-related osteoporosis without current pathological fracture; E55.9 Vitamin D deficiency, unspecified; M06.9 Rheumatoid arthritis, unspecified; I35.0 Nonrheumatic aortic (valve) stenosis; Z79.899 Other long term (current) drug therapy; Z79.01 Long term (current) use of anticoagulants

== ENCOUNTER → 2021-11-17 | Outpatient (CLI) | payer OTHER, MEDICAID ==
[~2021-11-17] MED LIST changes: +'zithromax250 MG PO; +BENZONATATE100 M1 PO; +GRISEOFULV125 MG/51 PO; +PHARMASSURE FO0.4 MG PO; +ZITHROMAX250 MG PO
== END | disposition home or self-care (01) ==
LOC: RAD 12:26
PROVIDERS: ATTEND Internal Medicine Nephrology
DX: M25.512 Pain in left shoulder (principal)

== ENCOUNTER → 2022-03-09 | Outpatient (CLI) | payer OTHER, MEDICAID | LOC: MAMMO 02-28 09:00 | PROVIDERS: ATTEND Internal Medicine Nephrology | DX: Z12.31 Encounter for screening mammogram for malignant neoplasm of breast (principal) ==

== ENCOUNTER 2022-07-24 10:02 | Emergency (ER) | payer OTHER, MEDICAID ==
[~2022-07-24] VITALS: Wt 65.3 kg
[2022-07-24 10:41] VITALS: BP 128/71
[2022-07-24 10:52] LABS: BASO # 0.1 10*3/uL (0.0-0.1); EOS % 0.5 % (1.0-4.0); HEMATOCRIT 35.6 % (37.0-47.0); LYMPH # 1.7 10*3/uL (1.3-4.4); LYMPH % 28.6 % (27.0-41.0); MEAN CELL VOLUME 87.5 fl (81.0-99.0); MEAN CORPUSCULAR HGB 27.5 pg (27.0-31.0); MEAN CORPUSCULAR HGB CONC 31.5 g/dl (33.0-37.0); MEAN PLATELET VOLUME 9.4 fl (9.6-12.3); MONO # 0.6 10*3/uL (0.1-1.0); MONO % 9.5 % (3.0-9.0); NEUT # 3.4 10*3/uL (2.3-7.9); NEUT % 59.5 % (47.0-73.0); PLATELET COUNT AUTOMATED 369 10*3/uL (130-400); RED BLOOD COUNT 4.07 10*6/uL (4.10-5.10); RED CELL DISTRI WIDTH 14.7 % (0-14.5); WHITE BLOOD COUNT 5.8 10*3/uL (4.8-10.8)
[2022-07-24 11:03] LABS: ACT PARTIAL THROMBO TIME 23.4 SECONDS (20.0-32.1)
[2022-07-24 11:09] LABS: ALKALINE PHOSPHATASE 134 U/L (45-117); BUN 22 mg/dl (7-24); CHLORIDE 107 mmol/L (98-107); CREATININE 0.91 mg/dL (0.55-1.02); POTASSIUM 3.6 mmol/L (3.5-5.1); SGOT/AST 17 IU/L (3-35); SGPT/ALT 23 U/L (12-78); SODIUM 140 mmol/L (136-145); TOTAL PROTEIN 7.7 gm/dL (6.4-8.2)
[2022-07-24] MEDS ORDERED: PREDNISONE20 M1 PO (12:57)
[2022-07-24] MEDS ORDERED: ZITHROMAX250 MG PO (12:57)
== END 2022-07-24 13:45 | disposition home or self-care (01) ==
LOC: ED 10:02
PROVIDERS: Family Medicine
DX: J44.1 Chronic obstructive pulmonary disease with (acute) exacerbation (principal); Z88.2 Allergy status to sulfonamides; Z88.1 Allergy status to other antibiotic agents; Z79.899 Other long term (current) drug therapy; Z90.49 Acquired absence of other specified parts of digestive tract; Z90.710 Acquired absence of both cervix and uterus; Z98.890 Other specified postprocedural states

== ENCOUNTER → 2022-09-28 | Outpatient (CLI) | payer OTHER, MEDICAID ==
[2022-09-28 10:59] LABS: URIC ACID 5.6 mg/dL (3.1-9.2)
== END | disposition home or self-care (01) ==
LOC: LAB 10:04
PROVIDERS: ATTEND Internal Medicine
DX: M17.0 Bilateral primary osteoarthritis of knee (principal)

== ENCOUNTER 2022-11-18 11:50 | Inpatient (IN) | payer OTHER, MEDICAID ==
[~2022-11-18] VITALS: Ht 152.4 cm; Wt 66.9 kg
[2022-11-18 11:50] VITALS: BP 137/68
[2022-11-18 12:17] LABS: BASO # 0.1 10*3/uL (0.0-0.1); BASO % 0.9 % (0.0-1.0); EOS # 0.1 10*3/uL (0.0-0.4); EOS % 2.5 % (1.0-4.0); HEMATOCRIT 40.2 % (37.0-47.0); LYMPH # 1.8 10*3/uL (1.3-4.4); MEAN CELL VOLUME 88.9 fl (81.0-99.0); MEAN CORPUSCULAR HGB CONC 32.6 g/dl (33.0-37.0); MEAN PLATELET VOLUME 9.6 fl (9.6-12.3); MONO # 0.5 10*3/uL (0.1-1.0); MONO % 9.7 % (3.0-9.0); NEUT # 3.1 10*3/uL (2.3-7.9); NEUT % 54.5 % (47.0-73.0); PLATELET COUNT AUTOMATED 266 10*3/uL (130-400); RED BLOOD COUNT 4.52 10*6/uL (4.10-5.10); RED CELL DISTRI WIDTH 15.2 % (0-14.5); WHITE BLOOD COUNT 5.6 10*3/uL (4.8-10.8)
[2022-11-18 12:19] VITALS: BP 121/60
[2022-11-18 12:31] LABS: ACT PARTIAL THROMBO TIME 24.8 SECONDS (20.0-32.1); INTERNATIONAL NORM RATIO 0.9 (2.0-3.5)
[2022-11-18 12:35] LABS: POTASSIUM 4.1 mmol/L (3.4-5.1); TOTAL PROTEIN 7.1 gm/dL (6.0-8.0)
[2022-11-18] MEDS ORDERED: ZESTRIL10 MG PO (12:39)
[2022-11-18] MEDS ORDERED: ASPIRIN CHILDRE81 MG PO (12:43)
[2022-11-18 15:11] VITALS: BP 105/55
[2022-11-18 15:15] VITALS: BP 105/55
[2022-11-18 16:50] VITALS: BP 115/73
[2022-11-18] MEDS ORDERED: ATORVASTATIN CA80 M1 PO (16:51)
[2022-11-18] MEDS ORDERED: CICLOPIROX15 GM T (16:55)
[2022-11-18] MEDS ORDERED: KENALOG 0.1%80 GM T (16:56)
[2022-11-18] MEDS ORDERED: FEROSUL325 M1 PO (16:57)
[2022-11-18] MEDS ORDERED: SENNA-PLUS TAB1 EACH PO (16:58)
[2022-11-18 20:00] VITALS: BP 111/64
[2022-11-19 08:00] VITALS: BP 140/67
[2022-11-19 12:00] VITALS: BP 111/55
[2022-11-19 16:00] VITALS: BP 118/53
[2022-11-19 20:00] VITALS: BP 122/83
[2022-11-20] VITALS: BP 127/84
[2022-11-20 06:28] LABS: BASO % 0.2 % (0.0-1.0); HEMATOCRIT 35.9 % (37.0-47.0); LYMPH # 0.9 10*3/uL (1.3-4.4); LYMPH % 10.7 % (27.0-41.0); MEAN CELL VOLUME 91.6 fl (81.0-99.0); MEAN CORPUSCULAR HGB 28.6 pg (27.0-31.0); MEAN CORPUSCULAR HGB CONC 31.2 g/dl (33.0-37.0); MEAN PLATELET VOLUME 10.4 fl (9.6-12.3); MONO # 0.7 10*3/uL (0.1-1.0); NEUT % 80.6 % (47.0-73.0); PLATELET COUNT AUTOMATED 272 10*3/uL (130-400); RED BLOOD COUNT 3.92 10*6/uL (4.10-5.10); RED CELL DISTRI WIDTH 15.9 % (0-14.5); WHITE BLOOD COUNT 8.6 10*3/uL (4.8-10.8)
[2022-11-20 07:46] LABS: BUN 21 mg/dl (9-23); CHLORIDE 105 mmol/L (98-107); CHOLESTEROL 140 mg/dL (<200); LDL CHOLESTEROL 47 mg/dL (9-159); POTASSIUM 4.1 mmol/L (3.4-5.1); TRIGLYCERIDES 68 mg/dl (<150)
[2022-11-20 08:00] VITALS: BP 133/57
[2022-11-20] MEDS ORDERED: VIBRAMYCIN100 MG PO (10:03)
[2022-11-20] MEDS ORDERED: PREDNISONE10 M1 PO (10:16)
[2022-11-20] MEDS ORDERED: METFORMIN XR500 MG PO (10:19)
== END 2022-11-20 12:01 | disposition home or self-care (01) | DRG 191 ==
LOC: ED 11:50 → 4E 13:29 → EDHOLD 13:29 → 4E 13:45
PROVIDERS: Nurse Practitioner Family; ADMIT Internal Medicine; ATTEND Internal Medicine
DX: J44.1 Chronic obstructive pulmonary disease with (acute) exacerbation (principal); N17.9 Acute kidney failure, unspecified; L30.4 Erythema intertrigo; R73.9 Hyperglycemia, unspecified; F41.9 Anxiety disorder, unspecified; I25.10 Atherosclerotic heart disease of native coronary artery without angina pectoris; Z86.73 Personal history of transient ischemic attack (TIA), and cerebral infarction without residual deficits; E86.9 Volume depletion, unspecified; Z90.49 Acquired absence of other specified parts of digestive tract; Z90.710 Acquired absence of both cervix and uterus; Z83.3 Family history of diabetes mellitus; Z88.2 Allergy status to sulfonamides; Z88.1 Allergy status to other antibiotic agents; Z82.5 Family history of asthma and other chronic lower respiratory diseases; Z79.82 Long term (current) use of aspirin; Z79.899 Other long term (current) drug therapy

== ENCOUNTER 2023-03-17 13:30 | Emergency (ER) | payer OTHER, MEDICAID ==
[~2023-03-17] VITALS: Wt 55.3 kg
[~2023-03-17 13:30] MED LIST changes: +AMLODIPINE BESYL5 MG PO; +ASPIRIN CHILDRE81 MG PO; +ATORVASTATIN CA80 M1 PO; +CICLOPIROX15 GM T; +FEROSUL325 M1 PO; +GLUCOPHAGE500 MG PO; +KENALOG 0.1%80 GM T; +LEVOTHYROXINE125 MCG PO; +LISINOPRIL10 M1 PO; +LOSARTAN POTASS25 M1 PO; +METFORMIN XR500 MG PO; +PREDNISONE10 M1 PO; +SENNA-PLUS TAB1 EACH PO; +SYNTHROID,LEV125 MCG PO; +TRULICITY1.5 MG/0.5 SC; +VIBRAMYCIN100 MG PO; +VITAMIN D350 MC2 PO
[2023-03-17 13:45] VITALS: BP 112/56
[2023-03-17 14:14] LABS: BILIRUBIN Negative (Negative); BLOOD 1+ (Negative); CLARITY Clear (Clear); COLOR Yellow (Yellow); GLUCOSE Negative (Negative); KETONE Negative (Negative); LEUKO ESTERASE 1+ (Negative); NITRITE Negative (Negative); PH 7.5 (4.5-8.0); SPECIFIC GRAVITY <= 1.005 (1.001-1.030)
[2023-03-17 14:59] LABS: BACTERIA 1+
[2023-03-17 16:02] LABS: BASO # 0.1 10*3/uL (0.0-0.1); BASO % 0.9 % (0.0-1.0); EOS # 0.3 10*3/uL (0.0-0.4); HEMATOCRIT 41.7 % (37.0-47.0); MEAN CELL VOLUME 92.3 fl (81.0-99.0); MEAN CORPUSCULAR HGB 29.2 pg (27.0-31.0); MEAN CORPUSCULAR HGB CONC 31.7 g/dl (33.0-37.0); MEAN PLATELET VOLUME 9.5 fl (9.6-12.3); MONO # 0.9 10*3/uL (0.1-1.0); MONO % 11.4 % (3.0-9.0); NEUT # 4.7 10*3/uL (2.3-7.9); NEUT % 58.2 % (47.0-73.0); PLATELET COUNT AUTOMATED 264 10*3/uL (130-400); RED BLOOD COUNT 4.52 10*6/uL (4.10-5.10); RED CELL DISTRI WIDTH 15.2 % (0-14.5); WHITE BLOOD COUNT 8.1 10*3/uL (4.8-10.8)
[2023-03-17 16:13] LABS: ACT PARTIAL THROMBO TIME 22.5 SECONDS (20.0-32.1)
[2023-03-17 16:24] LABS: ALKALINE PHOSPHATASE 136 U/L (46-116); BUN 11 mg/dl (9-23); CHLORIDE 103 mmol/L (98-107); LIPASE 43 U/L (12-53); POTASSIUM 3.9 mmol/L (3.4-5.1); SGPT/ALT 20 U/L (10-49)
[2023-03-17] MEDS ORDERED: METFORMIN HYDR500 MG PO (17:58)
[2023-03-17] MEDS ORDERED: CIPRO500 MG PO (18:30)
== END 2023-03-17 19:10 | disposition home or self-care (01) ==
LOC: ED 13:30
PROVIDERS: Emergency Medicine
DX: N39.0 Urinary tract infection, site not specified (principal); R10.32 Left lower quadrant pain; R53.1 Weakness; I10 Essential (primary) hypertension; M19.90 Unspecified osteoarthritis, unspecified site; J44.9 Chronic obstructive pulmonary disease, unspecified; Z86.73 Personal history of transient ischemic attack (TIA), and cerebral infarction without residual deficits; I25.2 Old myocardial infarction; Z88.2 Allergy status to sulfonamides; Z88.1 Allergy status to other antibiotic agents; Z88.8 Allergy status to other drugs, medicaments and biological substances; Z90.710 Acquired absence of both cervix and uterus; Z90.49 Acquired absence of other specified parts of digestive tract; Z98.890 Other specified postprocedural states

== ENCOUNTER → 2023-04-03 | Outpatient (CLI) | payer OTHER, MEDICAID ==
[~2023-04-03] MED LIST changes: +METFORMIN HYDR500 MG PO
== END | disposition home or self-care (01) ==
LOC: RAD 08:22
PROVIDERS: ATTEND Internal Medicine
DX: M81.0 Age-related osteoporosis without current pathological fracture (principal)

== ENCOUNTER → 2023-04-14 | Outpatient (CLI) | payer OTHER, MEDICAID | END | disposition home or self-care (01) | LOC: LAB 11:59 | PROVIDERS: ATTEND Internal Medicine | DX: R31.21 Asymptomatic microscopic hematuria (principal) ==

== ENCOUNTER → 2023-04-26 | Outpatient (CLI) | payer OTHER, MEDICAID ==
[2023-04-26 12:01] LABS: BASO # 0.1 10*3/uL (0.0-0.1); BASO % 1.4 % (0.0-1.0); EOS # 0.2 10*3/uL (0.0-0.4); EOS % 2.1 % (1.0-4.0); HEMATOCRIT 35.3 % (37.0-47.0); LYMPH % 25.8 % (27.0-41.0); MEAN CELL VOLUME 91.7 fl (81.0-99.0); MEAN CORPUSCULAR HGB 29.4 pg (27.0-31.0); MONO # 0.8 10*3/uL (0.1-1.0); MONO % 10.4 % (3.0-9.0); NEUT # 4.6 10*3/uL (2.3-7.9); NEUT % 59.9 % (47.0-73.0); PLATELET COUNT AUTOMATED 366 10*3/uL (130-400); RED BLOOD COUNT 3.85 10*6/uL (4.10-5.10); RED CELL DISTRI WIDTH 15.1 % (0-14.5); WHITE BLOOD COUNT 7.6 10*3/uL (4.8-10.8)
[2023-04-26 12:29] LABS: ALKALINE PHOSPHATASE 118 U/L (46-116); BUN 11 mg/dl (9-23); CHLORIDE 106 mmol/L (98-107); POTASSIUM 3.9 mmol/L (3.4-5.1); SGPT/ALT 15 U/L (10-49); TOTAL PROTEIN 7.2 gm/dL (6.0-8.0)
[2023-04-26 12:31] LABS: FREE T4 2.21 ng/dl (0.89-1.76)
== END | disposition home or self-care (01) ==
LOC: LAB 11:29
PROVIDERS: Internal Medicine; ATTEND Urology
DX: E03.9 Hypothyroidism, unspecified (principal); N39.0 Urinary tract infection, site not specified; R31.9 Hematuria, unspecified

== ENCOUNTER → 2023-05-31 | Outpatient (CLI) | payer OTHER, MEDICAID | END | disposition home or self-care (01) | LOC: MAMMO 02:20 | PROVIDERS: ATTEND Internal Medicine | DX: Z12.31 Encounter for screening mammogram for malignant neoplasm of breast (principal); N64.9 Disorder of breast, unspecified ==

== ENCOUNTER → 2023-06-15 | Outpatient (CLI) | payer OTHER, MEDICAID ==
[2023-06-15 16:41] LABS: BASO % 0.9 % (0.0-1.0); EOS % 0.5 % (1.0-4.0); HEMATOCRIT 39.2 % (37.0-47.0); LYMPH # 1.6 10*3/uL (1.3-4.4); MEAN CELL VOLUME 88.1 fl (81.0-99.0); MEAN CORPUSCULAR HGB 27.4 pg (27.0-31.0); MEAN CORPUSCULAR HGB CONC 31.1 g/dl (33.0-37.0); MONO # 0.9 10*3/uL (0.1-1.0); MONO % 19.6 % (3.0-9.0); NEUT # 1.9 10*3/uL (2.3-7.9); NEUT % 43.8 % (47.0-73.0); PLATELET COUNT AUTOMATED 306 10*3/uL (130-400); RED BLOOD COUNT 4.45 10*6/uL (4.10-5.10); RED CELL DISTRI WIDTH 13.9 % (0-14.5); WHITE BLOOD COUNT 4.4 10*3/uL (4.8-10.8)
[2023-06-15 17:02] LABS: BUN 17 mg/dl (9-23); CHLORIDE 105 mmol/L (98-107); POTASSIUM 3.4 mmol/L (3.4-5.1)
== END | disposition home or self-care (01) ==
LOC: LAB 16:19
PROVIDERS: ATTEND Internal Medicine
DX: U07.1 COVID-19 (principal)

== ENCOUNTER → 2023-12-14 | Outpatient (CLI) | payer OTHER, MEDICAID ==
[2023-12-14 11:38] LABS: FREE T4 1.54 ng/dl (0.89-1.76)
== END | disposition home or self-care (01) ==
LOC: LAB 10:25
PROVIDERS: ATTEND Internal Medicine
DX: E03.9 Hypothyroidism, unspecified (principal)

== ENCOUNTER 2024-01-09 13:56 | Emergency (ER) | payer OTHER, MEDICAID ==
[~2024-01-09] VITALS: Ht 149.8 cm; Wt 59.9 kg
[2024-01-09 14:03] VITALS: BP 115/58
[2024-01-09] MEDS ORDERED: methylPREDNISolone sod succ 125 MG VIAL IM ONE (14:30)
[2024-01-09] MEDS ORDERED: Albuterol Sulf/Ipratropium 3 ML VIAL NEB ONE (14:30)
[2024-01-09 14:34] LABS: BASO # 0.1 10*3/uL (0.0-0.1); BASO % 0.8 % (0.0-1.0); EOS # 0.1 10*3/uL (0.0-0.4); LYMPH # 2.1 10*3/uL (1.3-4.4); LYMPH % 22.2 % (27.0-41.0); MEAN CORPUSCULAR HGB 26.5 pg (27.0-31.0); MEAN CORPUSCULAR HGB CONC 31.1 g/dl (33.0-37.0); MEAN PLATELET VOLUME 9.7 fl (9.6-12.3); MONO % 10.4 % (3.0-9.0); NEUT # 6.2 10*3/uL (2.3-7.9); NEUT % 65.3 % (47.0-73.0); PLATELET COUNT AUTOMATED 355 10*3/uL (130-400); RED BLOOD COUNT 4.12 10*6/uL (4.10-5.10); RED CELL DISTRI WIDTH 15.2 % (0-14.5); WHITE BLOOD COUNT 9.5 10*3/uL (4.8-10.8)
[2024-01-09 14:58] LABS: ALKALINE PHOSPHATASE 120 U/L (46-116); BUN 16 mg/dl (9-23); CHLORIDE 102 mmol/L (98-107); POTASSIUM 3.7 mmol/L (3.4-5.1); SGPT/ALT 10 U/L (5-49); TOTAL PROTEIN 7.3 gm/dL (6.0-8.0)
[2024-01-09 15:31] LABS: BILIRUBIN Negative (Negative); BLOOD 2+ (Negative); CLARITY Clear (Clear); COLOR Yellow (Yellow); GLUCOSE Negative (Negative); KETONE Trace (Negative); LEUKO ESTERASE 2+ (Negative); NITRITE Negative (Negative); PH 6.5 (4.5-8.0)
[2024-01-09 15:41] LABS: BACTERIA 2+; RBC TNTC rbc/hpf (0-2); WBC 21-30 wbc/hpf (0-5)
[2024-01-09] MEDS ORDERED: PREDNISONE10 MG PO (16:11)
[2024-01-09] MEDS ORDERED: MACROBID100 M1 PO (16:11)
== END 2024-01-09 16:24 | disposition home or self-care (01) ==
LOC: ED 13:56
PROVIDERS: Physician Assistant Medical
DX: N39.0 Urinary tract infection, site not specified (principal); Z20.822 Contact with and (suspected) exposure to COVID-19; J44.1 Chronic obstructive pulmonary disease with (acute) exacerbation; I25.10 Atherosclerotic heart disease of native coronary artery without angina pectoris; R63.0 Anorexia; I10 Essential (primary) hypertension; M19.90 Unspecified osteoarthritis, unspecified site; J44.9 Chronic obstructive pulmonary disease, unspecified; E78.00 Pure hypercholesterolemia, unspecified; I25.2 Old myocardial infarction; Z86.73 Personal history of transient ischemic attack (TIA), and cerebral infarction without residual deficits; E03.9 Hypothyroidism, unspecified; Z68.1 Body mass index [BMI] 19.9 or less, adult; Z88.2 Allergy status to sulfonamides; Z88.1 Allergy status to other antibiotic agents; Z88.8 Allergy status to other drugs, medicaments and biological substances; Z90.710 Acquired absence of both cervix and uterus; Z90.49 Acquired absence of other specified parts of digestive tract; Z98.890 Other specified postprocedural states

== ENCOUNTER 2024-03-24 09:25 | Emergency (ER) | payer OTHER, MEDICAID ==
[~2024-03-24] VITALS: Ht 152.4 cm; Wt 61.2 kg
[~2024-03-24 09:25] MED LIST changes: +MACROBID100 M1 PO
[2024-03-24 09:44] VITALS: BP 139/71
[2024-03-24 10:08] LABS: BASO # 0.1 10*3/uL (0.0-0.1); BASO % 1.4 % (0.0-1.0); EOS # 0.2 10*3/uL (0.0-0.4); EOS % 2.6 % (1.0-4.0); HEMATOCRIT 34.3 % (37.0-47.0); LYMPH # 2.2 10*3/uL (1.3-4.4); LYMPH % 24.5 % (27.0-41.0); MEAN CELL VOLUME 85.5 fl (81.0-99.0); MEAN CORPUSCULAR HGB 26.9 pg (27.0-31.0); MEAN CORPUSCULAR HGB CONC 31.5 g/dl (33.0-37.0); MEAN PLATELET VOLUME 9.4 fl (9.6-12.3); MONO # 0.9 10*3/uL (0.1-1.0); MONO % 9.8 % (3.0-9.0); NEUT # 5.6 10*3/uL (2.3-7.9); NEUT % 61.4 % (47.0-73.0); PLATELET COUNT AUTOMATED 431 10*3/uL (130-400); RED BLOOD COUNT 4.01 10*6/uL (4.10-5.10); RED CELL DISTRI WIDTH 15.4 % (0-14.5); WHITE BLOOD COUNT 9.1 10*3/uL (4.8-10.8)
[2024-03-24 10:26] LABS: BUN 13 mg/dl (9-23); CHLORIDE 103 mmol/L (98-107); POTASSIUM 3.7 mmol/L (3.4-5.1)
[2024-03-24 10:57] LABS: BILIRUBIN Negative (Negative); BLOOD Trace-Lysed (Negative); CLARITY Clear (Clear); COLOR Yellow (Yellow); GLUCOSE Negative (Negative); KETONE Negative (Negative); LEUKO ESTERASE 1+ (Negative); NITRITE Negative (Negative); SPECIFIC GRAVITY <= 1.005 (1.001-1.030)
[2024-03-24 11:26] LABS: BACTERIA TRACE
== END 2024-03-24 12:40 | disposition home or self-care (01) ==
LOC: ED 09:25
PROVIDERS: Nurse Practitioner Family
DX: M17.11 Unilateral primary osteoarthritis, right knee (principal); M17.12 Unilateral primary osteoarthritis, left knee; R05.9 Cough, unspecified; I10 Essential (primary) hypertension; J44.9 Chronic obstructive pulmonary disease, unspecified; E78.00 Pure hypercholesterolemia, unspecified; E03.9 Hypothyroidism, unspecified; I25.2 Old myocardial infarction; Z86.73 Personal history of transient ischemic attack (TIA), and cerebral infarction without residual deficits; Z88.2 Allergy status to sulfonamides; Z88.1 Allergy status to other antibiotic agents; Z88.8 Allergy status to other drugs, medicaments and biological substances; Z98.890 Other specified postprocedural states; Z90.49 Acquired absence of other specified parts of digestive tract; Z90.710 Acquired absence of both cervix and uterus; Z95.5 Presence of coronary angioplasty implant and graft

== ENCOUNTER → 2024-03-25 | Outpatient (CLI) | payer OTHER, MEDICAID | LOC: RAD 12:05 | PROVIDERS: ATTEND Internal Medicine | DX: M25.561 Pain in right knee (principal); M17.0 Bilateral primary osteoarthritis of knee; M25.462 Effusion, left knee; M25.461 Effusion, right knee; R05.1 Acute cough; M25.562 Pain in left knee ==

== ENCOUNTER → 2024-08-19 | Outpatient (CLI) | payer OTHER, MEDICAID | END | disposition home or self-care (01) | LOC: US 01:24 | PROVIDERS: ATTEND Internal Medicine | DX: R31.29 Other microscopic hematuria (principal) ==

== ENCOUNTER 2024-12-28 12:39 | Emergency (ER) | payer OTHER, MEDICAID ==
[~2024-12-28] VITALS: Ht 152.4 cm; Wt 61.2 kg
[2024-12-28 12:51] VITALS: BP 121/70
[2024-12-28] MEDS ORDERED: Tdap Vaccine 0.5 ML SYR (Adult Vaccine) IM ONE (13:20)
[2024-12-28] MEDS ORDERED: Bacitracin Zinc 14 GM TUBE T ONE (13:20)
[2024-12-28] MEDS ORDERED: Doxycycline Hyclate 100 MG TAB PO ONE (13:20)
[2024-12-28] MEDS ORDERED: VIBRAMYCIN100 MG PO (14:01)
== END 2024-12-28 15:04 | disposition home or self-care (01) ==
LOC: ED 12:39
DX: S81.812A Laceration without foreign body, left lower leg, initial encounter (principal); E11.9 Type 2 diabetes mellitus without complications; M19.90 Unspecified osteoarthritis, unspecified site; Z88.2 Allergy status to sulfonamides; Z88.8 Allergy status to other drugs, medicaments and biological substances; Z88.1 Allergy status to other antibiotic agents; Z79.899 Other long term (current) drug therapy; Z79.2 Long term (current) use of antibiotics; Z79.84 Long term (current) use of oral hypoglycemic drugs; Z90.710 Acquired absence of both cervix and uterus; Z90.49 Acquired absence of other specified parts of digestive tract; W22.8XXA Striking against or struck by other objects, initial encounter; Y93.89 Activity, other specified; Y92.89 Other specified places as the place of occurrence of the external cause; Y99.8 Other external cause status

== ENCOUNTER → 2025-07-14 | Outpatient (CLI) | payer OTHER, MEDICAID ==
[2025-07-14 09:03] LABS: BASO # 0.1 10*3/uL (0.0-0.1); BASO % 1.5 % (0.0-1.0); EOS # 0.2 10*3/uL (0.0-0.4); EOS % 3.3 % (1.0-4.0); MEAN CELL VOLUME 89.6 fl (81.0-99.0); MEAN CORPUSCULAR HGB 27.7 pg (27.0-31.0); MEAN PLATELET VOLUME 9.3 fl (9.6-12.3); MONO # 0.6 10*3/uL (0.1-1.0); MONO % 10.6 % (3.0-9.0); NEUT # 3.2 10*3/uL (2.3-7.9); NEUT % 53.0 % (47.0-73.0); NUCLEATED RED BLOOD CELL 0.0 % (0.0-0.0); NUCLEATED RED BLOOD CELL 0.0 10*3/uL (0.0-0.0); PLATELET COUNT AUTOMATED 280 10*3/uL (130-400); RED CELL DISTRI WIDTH 14.7 % (0-14.5)
[2025-07-14 09:42] LABS: BUN 14 mg/dl (9-23); FREE T4 1.47 ng/dl (0.89-1.76); LDL CHOLESTEROL 46 mg/dL (9-159); SGPT/ALT 11 U/L (5-49)
[2025-07-14 10:05] LABS: VITAMIN D, 25-HYDROXY 48.8 ng/mL (30-100)
== END | disposition home or self-care (01) ==
LOC: LAB 08:40
PROVIDERS: ATTEND Internal Medicine
DX: I10 Essential (primary) hypertension (principal); E78.5 Hyperlipidemia, unspecified; E55.9 Vitamin D deficiency, unspecified; E03.9 Hypothyroidism, unspecified

== ENCOUNTER → 2025-08-15 | Outpatient (CLI) | payer OTHER, MEDICAID | END | disposition home or self-care (01) | LOC: US 02:00 | PROVIDERS: ATTEND Internal Medicine | DX: K76.0 Fatty (change of) liver, not elsewhere classified (principal); R74.8 Abnormal levels of other serum enzymes ==